=== PATIENT | male | born 1970 | race Caucasian/White ===

== ENCOUNTER 2017-02-08 08:00 | Outpatient (CLI) | payer MEDICAID ==
[2017-02-08 13:21] LABS: BASOPHILS % (AUTO) 0.4 %; EOSINOPHILS # (AUTO) 0.2 10^3/uL (0.0-0.7); EOSINOPHILS % (AUTO) 2.8 %; HCT - HEMATOCRIT 43.2 % (42.0-52.0); HGB - HEMOGLOBIN 15.1 g/dL (14.0-18.0); LYMPHOCYTES # (AUTO) 3.3 10^3/uL (1.5-3.5); LYMPHOCYTES % (AUTO) 58.3 %; MEAN CORPUSCULAR HEMOGLOBIN 33.6 pg (27.0-31.0); MEAN CORPUSCULAR VOLUME 95.9 fL (80.0-94.0); MEAN PLATELET VOLUME 9.2 fL (7.4-11.4); MONOCYTES # (AUTO) 0.5 10^3/uL (0.0-1.0); MONOCYTES % (AUTO) 9.2 %; NEUTROPHILS # (AUTO) 1.6 10^3/uL (1.5-6.6); NEUTROPHILS % (AUTO) 29.3 %; NUCLEATED RED BLOOD CELLS AUTO 0.1 /100WBC; RED BLOOD COUNT 4.51 10^6/uL (4.70-6.10); RED CELL DISTRIBUTION WIDTH 13.2 % (12.0-15.0); UNCORRECTED WHITE BLOOD COUNT 5.6 x10^3/uL; WHITE BLOOD COUNT 5.6 x10^3/uL (4.8-10.8)
[2017-02-08 13:31] LABS: ALBUMIN/GLOBULIN RATIO 1.5 (1.0-2.2); BILIRUBIN,TOTAL 0.8 mg/dL (0.2-1.0); BUN - BLOOD UREA NITROGEN 14 mg/dL (6-20); CALCIUM 8.9 mg/dL (8.5-10.3); CARBON DIOXIDE - CO2 25 mmol/L (21-32); CHLORIDE 104 mmol/L (101-111); CHOL/HDL RATIO 5.7 (<5.0); CHOLESTEROL 258 mg/dL; GFR - MDRD 81 (>89); GLUCOSE 108 mg/dL (70-100); HDL CHOLESTEROL 45 mg/dL; POTASSIUM 3.7 mmol/L (3.5-5.0); SODIUM 140 mmol/L (135-145); TOTAL PROTEIN 6.9 g/dL (6.7-8.2); TRIGLYCERIDES 637 mg/dL
[2017-02-08 13:50] LABS: LDL CHOLESTEROL,DIRECT 123 mg/dL
== END 2017-02-08 08:01 | disposition home or self-care (01) ==
LOC: LAB.N 08:00
PROVIDERS: ATTEND Physician Assistant
DX: I10 Essential (primary) hypertension (principal); F31.81 Bipolar II disorder
CPT/HCPCS: 36415; 80053; 80061; 84443; 85025

== ENCOUNTER 2017-06-28 12:57 | Emergency (ER) | payer MEDICAID ==
[2017-06-28 13:25] LABS: BILIRUBIN,URINE NEGATIVE (NEGATIVE); PH,URINE 7.5 PH (5.0-7.5)
[2017-06-28 13:26] LABS: UA CHARGE (STRIP ONLY) YES; UR CULTURE IF IND NOT INDICATED
[2017-06-28 13:44] LABS: BASOPHILS # (AUTO) 0.1 10^3/uL (0.0-0.1); BASOPHILS % (AUTO) 1.2 %; EOSINOPHILS # (AUTO) 0.1 10^3/uL (0.0-0.7); EOSINOPHILS % (AUTO) 2.2 %; HGB - HEMOGLOBIN 14.8 g/dL (14.0-18.0); LYMPHOCYTES # (AUTO) 1.5 10^3/uL (1.5-3.5); LYMPHOCYTES % (AUTO) 34.5 %; MEAN CORPUSCULAR HEMOGLOBIN 33.3 pg (27.0-31.0); MEAN CORPUSCULAR HGB CONC 35.1 g/dL (32.0-36.0); MEAN CORPUSCULAR VOLUME 94.8 fL (80.0-94.0); MEAN PLATELET VOLUME 8.1 fL (7.4-11.4); MONOCYTES # (AUTO) 0.4 10^3/uL (0.0-1.0); NEUTROPHILS # (AUTO) 2.3 10^3/uL (1.5-6.6); NEUTROPHILS % (AUTO) 53.1 %; NUCLEATED RED BLOOD CELLS AUTO 0.1 /100WBC; RED BLOOD COUNT 4.43 10^6/uL (4.70-6.10); RED CELL DISTRIBUTION WIDTH 12.7 % (12.0-15.0); UNCORRECTED WHITE BLOOD COUNT 4.4 x10^3/uL; WHITE BLOOD COUNT 4.4 x10^3/uL (4.8-10.8)
[2017-06-28 13:58] LABS: ACETAMINOPHEN < 10 ug/mL (10-30); ALBUMIN/GLOBULIN RATIO 1.4 (1.0-2.2); BILIRUBIN,TOTAL 0.6 mg/dL (0.2-1.0); BUN - BLOOD UREA NITROGEN 13 mg/dL (6-20); CALCIUM 9.3 mg/dL (8.5-10.3); CARBON DIOXIDE - CO2 24 mmol/L (21-32); CHLORIDE 104 mmol/L (101-111); GFR - MDRD 80 (>89); GLUCOSE 109 mg/dL (70-100); LIPASE 20 U/L (22-51); SALICYLATE < 6.0 mg/dL; SODIUM 138 mmol/L (135-145); TOTAL PROTEIN 7.1 g/dL (6.7-8.2)
--- NOTE | 2017-06-28 14:14 | ED Physician Documentation ---
PD HPI MHE - Stated complaint Stated Complaint: SI/DEPRESSION - Chief complaint Chief Complaint: MHE - History obtained from History obtained from: Patient - History of Present Illness Primary symptom: Suicidal ideation Timing - onset: How many days ago (several) Pain level max: 0 Pain level now: 0 Contributing factors: No: Family, Sig other, Work, School, Money, Legal, Substance abuse - ETOH, Substance abuse - drugs, Off meds, Out of meds Similar symptoms before: Diagnosis (bipolar, depression, anxiety) Recently seen: Other (Sent to the emergency department by his psychiatrist and counselor at [facility] for evaluation. Has been stating that he has been feeling suicidal, his plan is to take dental floss, twisted into a rope and hang himself. States last hospitalized approximately 5 years ago in [facility]. States he was in prison for 4 years recently. Denies any drug use other than marijuana.) Review of Systems Ten Systems: 10 systems reviewed and negative Constitutional: denies: Fever, Chills Ears: denies: Ear pain Nose: denies: Rhinorrhea / runny nose, Congestion Throat: denies: Sore throat Cardiac: denies: Chest pain / pressure Respiratory: denies: Cough GI: denies: Abdominal Pain, Nausea, Vomiting, Diarrhea Skin: denies: Rash Musculoskeletal: denies: Neck pain, Back pain Neurologic: denies: Focal weakness, Numbness, Headache Psychiatric: reports: Anxiety PD PAST MEDICAL HISTORY - Past Medical History Past Medical History: Yes Cardiovascular: Hypertension Respiratory: None, Other Neuro: None Endocrine/Autoimmune: None GI: None : None HEENT: Chronic sinusitis Psych: Depression, Anxiety, Bipolar disorder, Panic attacks, ADD/ADHD, Post traumatic stress disorder, Claustrophobia Musculoskeletal: Gout Derm: None - Past Surgical History Past Surgical History: Yes Ortho: Rotator cuff repair, Other HEENT: Tonsil/Adenoidectomy - Present Medications Home Medications: Ambulatory Orders Medication Instructions Recorded Confirmed FLUoxetine [PROzac] 40 mg PO DAILY 12/27/13 06/28/17 Mirtazapine [Remeron] 15 mg PO HS 12/27/13 06/28/17 Dextroamphetamine/Amphetamine 20 mg PO BID 03/30/14 06/28/17 [Adderall Xr 20 mg Capsule] Lorazepam 1 mg PO DAILY PRN 05/08/14 06/28/17 lamoTRIgine [LaMICtal] 100 mg PO BID 05/08/14 06/28/17 Olanzapine [Zyprexa] 100 mg PO BID 04/28/15 06/28/17 Omeprazole 20 mg PO DAILY 04/28/15 06/28/17 Divalproex Sodium [Depakote] 500 mg PO BID 01/21/16 06/28/17 busPIRone [Buspar] 15 mg PO BID 01/21/16 06/28/17 - Allergies Allergies/Adverse Reactions: Allergies Allergy/AdvReac Type Severity Reaction Status Date / Time risperidone [From Risperdal] Allergy Severe Edema Verified 06/28/17 13:04 rofecoxib [From Vioxx] Allergy Severe rapid Verified 06/28/17 13:04 heart rate celecoxib [From Celebrex] Allergy Intermediate elevated HR Verified 06/28/17 13: 04 NSAIDS (Non-Steroidal Allergy Intermediate Respiratory Verified 06/28/17 13:04 Anti-Inflamma pentosan polysulfate sodium Allergy Mild Unknown Verified 06/28/17 13:04 [From Elmiron] - Social History Does the pt smoke?: Yes Smoking Status: Current some day smoker Does the pt drink ETOH?: No Does the pt have substance abuse?: No - Immunizations Immunizations are current?: Yes - POLST Patient has POLST: No PD ED PE NORMAL - Vitals Vital signs reviewed: Yes - General General: Alert and oriented X 3, No acute distress, Well developed/nourished - HEENT HEENT: PERRL, Moist mucous membranes - Neck Neck: Supple, no meningeal sign - Cardiac Cardiac: RRR, Strong equal pulses - Respiratory Respiratory: No respiratory distress, Clear bilaterally - Abdomen Abdomen: Soft, Non tender, Non distended - Back Back: No spinal TTP - Derm Derm: Warm and dry - Extremities Extremities: No edema, No calf tenderness / cord - Neuro Neuro: Alert and oriented X 3, loop tender 2-12 intact, No motor deficit, No sensory deficit, Normal speech - Psych Psych: Normal mood, Normal affect Results - Vitals Vitals: Vital Signs - 24 hr 06/28/17 06/28/17 12:59 13:52 Temperature 35.9 C L 35.8 C L Heart Rate 84 69 Respiratory 18 16 Rate Blood Pressure 130/75 134/91 H O2 Saturation 97 99 Oxygen O2 Source Room air - Labs Labs: Laboratory Tests 06/28/17 06/28/17 06/28/17 13:36 13:36 Unknown WBC 4.4 L RBC 4.43 L Hgb 14.8 Hct 42.0 MCV 94.8 H MCH 33.3 H MCHC 35.1 RDW 12.7 Plt Count 191 MPV 8.1 Neut # 2.3 Lymph # 1.5 [place] # 0.4 Eos # 0.1 Baso # 0.1 Absolute Nucleated RBC 0.00 Nucleated RBC % 0.1 Sodium 138 Potassium 4.0 Chloride 104 Carbon Dioxide 24 Anion Gap 10.0 BUN 13 Creatinine 1.0 Estimated GFR (MDRD) 80 L Glucose 109 H Calcium 9.3 Total Bilirubin 0.6 AST 31 ALT 62 H Alkaline Phosphatase 65 Total Protein 7.1 Albumin 4.1 Globulin 3.0 Albumin/Globulin Ratio 1.4 Lipase 20 L Urine Color YELLOW Urine Clarity CLEAR Urine pH 7.5 Ur Specific [place] 1.015 Urine Protein NEGATIVE Urine Glucose (UA) NEGATIVE Urine Ketones NEGATIVE Urine Occult Blood NEGATIVE Urine Nitrite NEGATIVE Urine Bilirubin NEGATIVE Urine Urobilinogen 0.2 (NORMAL) Ur Leukocyte Esterase NEGATIVE Ur Microscopic Review NOT INDICATED Urine Culture Comments NOT INDICATED Salicylates < 6.0 Urine Opiates Screen POSITIVE H Ur Oxycodone Screen NEGATIVE Urine Methadone Screen NEGATIVE Ur Propoxyphene Screen NEGATIVE Acetaminophen < 10 L Ur Barbiturates Screen NEGATIVE Ur Tricyclics Screen NEGATIVE Ur Phencyclidine Scrn NEGATIVE Ur Amphetamine Screen POSITIVE H U Methamphetamines Scrn NEGATIVE U Benzodiazepines Scrn POSITIVE H Urine Cocaine Screen NEGATIVE U Cannabinoids Screen POSITIVE H Ethyl Alcohol < 5.0 PD MEDICAL DECISION MAKING - ED course Complexity details: reviewed results, re-evaluated patient, considered differential, d/w patient ED course: Patient with suicidal ideation. Requesting voluntary placement. Social work consulted after medical clearance. Patient is accepted to [facility], but do not have a bed until tomorrow. He will remain in the emergency department overnight for his safety. Patient is comfortable with this plan. This document was made in part using voice recognition software. While efforts are made to proofread this document, sound alike and grammatical errors may occur. Departure - Departure Clinical Impression: Suicidal ideation Depression Qualifiers: Depression Type: unspecified Qualified Code(s): F32.9 - Major depressive disorder, single episode, unspecified Bipolar disorder Qualifiers: Active/Remission status: currently active Current bipolar episode type: depressed Current episode severity: severe Psychotic features: without psychotic features Qualified Code(s): F31.4 - Bipolar disorder, current episode depressed, severe, without psychotic features Condition: Stable
[2017-06-28] MEDS ORDERED: lamoTRIgine 100 MG TABLET PO STA (18:55)
[2017-06-28] MEDS ORDERED: OLANZapine ODT 5 MG TABLET TL ONE ×2 (18:55→20:56)
[2017-06-28] MEDS ORDERED: busPIRone 5 MG TABLET PO STA (18:55)
[2017-06-28] MEDS ORDERED: DIVALPROEX DR 125 MG TABLET PO STA (18:55)
[2017-06-28] MEDS ORDERED: MIRTAZAPINE 15 MG TABLET PO STA (18:55)
[2017-06-28] MEDS ORDERED: DIVALPROEX DR 250 MG TABLET PO ONE (20:52)
[2017-06-29] MEDS ORDERED: lamoTRIgine 100 MG TABLET PO STA (13:11)
[2017-06-29] MEDS ORDERED: OLANZapine ODT 5 MG TABLET TL ONE ×2 (13:11→13:39)
[2017-06-29] MEDS ORDERED: busPIRone 5 MG TABLET PO STA (13:11)
[2017-06-29] MEDS ORDERED: DIVALPROEX DR 125 MG TABLET PO STA (13:11)
[2017-06-29] MEDS ORDERED: PANTOPRAZOLE 40 MG TABLET PO STA (13:13)
[2017-06-29] MEDS ORDERED: FLUoxetine 10 MG CAPSULE PO STA (13:13)
[2017-06-29] MEDS ORDERED: PANTOPRAZOLE 40 MG TABLET ONE (13:39)
[2017-06-29 13:50] VITALS: BP 135/68
== END 2017-06-29 14:10 ==
LOC: ED 12:57
DX: R45.851 Suicidal ideations (principal); F31.4 Bipolar disorder, current episode depressed, severe, without psychotic features; I10 Essential (primary) hypertension; F17.200 Nicotine dependence, unspecified, uncomplicated
CPT/HCPCS: 36415; 80053; 80306; 80307; 80320; 80329; 81003; 83690; 85025; 99285; A9270; 81001; 87086; 99284

== ENCOUNTER 2017-12-17 14:29 | Emergency (ER) | payer MEDICAID ==
[2017-12-17 16:00] LABS: MUDS CUTOFF CONCENTRATIONS CUTOFF CONC BELOW:
[2017-12-17 16:02] LABS: BILIRUBIN,URINE NEGATIVE (NEGATIVE); GLUCOSE, URINE (UA) NEGATIVE (NEGATIVE); KETONES,URINE (UA) NEGATIVE (NEGATIVE); LEUKOCYTE ESTERASE, URINE NEGATIVE (NEGATIVE); NITRITE,URINE NEGATIVE (NEGATIVE); OCCULT BLOOD,URINE TRACE-INTA (NEGATIVE); PROTEIN,URINE NEGATIVE (NEGATIVE); UROBILINOGEN,URINE 0.2 (NORMAL) E.U./dL (NORMAL)
[2017-12-17 16:03] LABS: CLARITY,URINE CLEAR (CLEAR)
[2017-12-17 16:13] LABS: AMPHETAMINE SCREEN,URINE POSITIVE (NEGATIVE); BENZODIAZEPINES SCREEN, URINE NEGATIVE (NEGATIVE); COCAINE SCREEN URINE NEGATIVE (NEGATIVE); METHADONE SCREEN, URINE NEGATIVE (NEGATIVE); METHAMPHETAMINES SCREEN, URINE POSITIVE (NEGATIVE); OPIATE SCREEN, URINE NEGATIVE (NEGATIVE); OXYCODONE SCREEN, URINE NEGATIVE (NEGATIVE); PROPOXYPHENE SCREEN, URINE NEGATIVE (NEGATIVE); TRICYCLIC ANTIDEPRESSANT,URINE NEGATIVE (NEGATIVE)
[2017-12-17 16:25] LABS: BASOPHILS # (AUTO) 0.1 10^3/uL (0.0-0.1); BASOPHILS % (AUTO) 0.8 %; EOSINOPHILS # (AUTO) 0.1 10^3/uL (0.0-0.7); EOSINOPHILS % (AUTO) 0.8 %; HGB - HEMOGLOBIN 17.6 g/dL (14.0-18.0); LYMPHOCYTES # (AUTO) 3.1 10^3/uL (1.5-3.5); LYMPHOCYTES % (AUTO) 32.5 %; MEAN CORPUSCULAR HEMOGLOBIN 32.8 pg (27.0-31.0); MEAN CORPUSCULAR HGB CONC 34.3 g/dL (32.0-36.0); MEAN CORPUSCULAR VOLUME 95.5 fL (80.0-94.0); MONOCYTES # (AUTO) 0.8 10^3/uL (0.0-1.0); MONOCYTES % (AUTO) 8.9 %; NEUTROPHILS # (AUTO) 5.4 10^3/uL (1.5-6.6); PLT - PLATELET COUNT 260 10^3/uL (130-450); RED BLOOD COUNT 5.37 10^6/uL (4.70-6.10); RED CELL DISTRIBUTION WIDTH 12.9 % (12.0-15.0); WHITE BLOOD COUNT 9.5 x10^3/uL (4.8-10.8)
--- NOTE | 2017-12-17 16:28 | ED Physician Documentation ---
PD HPI MHE - Stated complaint Stated Complaint: MHE - Chief complaint Chief Complaint: MHE - History obtained from History obtained from: Patient - History of Present Illness Primary symptom: Psychosis (hearing voices and music in his head which is bothering him and he is feeling anxious. He feels he needs meds adjusted and someplace safe. He has been Hospitaliszed to [facility] in recent past and says he felt better after meds changed there. He denies alcohol nor drug use, and has not had any recent change in meds nor skipped meds.) Timing - onset: How many days ago (few) Contributing factors: No: Substance abuse - ETOH, Substance abuse - drugs, Off meds, Out of meds Similar symptoms before: Diagnosis (see PMH - affective psychosis) Recently seen: Not recently seen Review of Systems Constitutional: denies: Fever, Chills Nose: denies: Rhinorrhea / runny nose, Congestion Throat: denies: Sore throat Cardiac: denies: Chest pain / pressure, Palpitations Respiratory: denies: Dyspnea, Cough GI: denies: Abdominal Pain, Nausea, Vomiting, Diarrhea : denies: Dysuria, Frequency Skin: denies: Rash, Lesions Neurologic: reports: Headache. denies: Generalized weakness, Focal weakness, Numbness, Confused, Altered mental status, Head injury Psychiatric: reports: Hallucinations (auditory), Anxiety Endocrine: denies: Weight loss Immunocompromised: denies: Immunocompromised PD PAST MEDICAL HISTORY - Past Medical History Cardiovascular: Hypertension Respiratory: None, Other Neuro: None Endocrine/Autoimmune: None GI: None : None HEENT: Chronic sinusitis Psych: Depression, Anxiety, Bipolar disorder, Panic attacks, ADD/ADHD, Post traumatic stress disorder, Claustrophobia Musculoskeletal: Gout Derm: None - Past Surgical History Past Surgical History: Yes Ortho: Rotator cuff repair, Other HEENT: Tonsil/Adenoidectomy - Present Medications Home Medications: Ambulatory Orders Medication Instructions Recorded Confirmed FLUoxetine [PROzac] 40 mg PO DAILY 12/27/13 06/28/17 Mirtazapine [Remeron] 15 mg PO HS 12/27/13 06/28/17 Dextroamphetamine/Amphetamine 20 mg PO BID 03/30/14 06/28/17 [Adderall Xr 20 mg Capsule] LORazepam [Lorazepam] 1 mg PO DAILY PRN 05/08/14 06/28/17 lamoTRIgine [LaMICtal] 100 mg PO BID 05/08/14 06/28/17 Olanzapine [Zyprexa] 100 mg PO BID 04/28/15 06/28/17 Omeprazole 20 mg PO DAILY 04/28/15 06/28/17 Divalproex Sodium [Depakote] 500 mg PO BID 01/21/16 06/28/17 busPIRone [Buspar] 15 mg PO BID 01/21/16 06/28/17 - Allergies Allergies/Adverse Reactions: Allergies Allergy/AdvReac Type Severity Reaction Status Date / Time risperidone [From Risperdal] Allergy Severe Edema Verified 06/28/17 13:04 rofecoxib [From Vioxx] Allergy Severe rapid Verified 06/28/17 13:04 heart rate celecoxib [From Celebrex] Allergy Intermediate elevated HR Verified 06/28/17 13: 04 NSAIDS (Non-Steroidal Allergy Intermediate Respiratory Verified 06/28/17 13:04 Anti-Inflamma pentosan polysulfate sodium Allergy Mild Unknown Verified 06/28/17 13:04 [From Elmiron] - Social History Does the pt smoke?: Yes Smoking Status: Current every day smoker Does the pt drink ETOH?: No Does the pt have substance abuse?: No - Immunizations Immunizations are current?: Yes - POLST Patient has POLST: No PD ED PE NORMAL - Vitals Vital signs reviewed: Yes - General General: Alert and oriented X 3, Well developed/nourished, Other (seems anxious) - HEENT HEENT: Atraumatic, PERRL, EOMI, Moist mucous membranes, Pharynx benign - Neck Neck: Supple, no meningeal sign, No adenopathy - Cardiac Cardiac: RRR, No murmur - Respiratory Respiratory: Clear bilaterally - Abdomen Abdomen: Soft, Non tender - Derm Derm: Normal color, Warm and dry, No rash - Extremities Extremities: No deformity, No tenderness to palpate, Normal ROM s pain, No edema - Psych Psych: No: Normal affect (anxious but conversant and pleasant. ) Results - Vitals Vitals: Vital Signs - 24 hr 12/17/17 12/17/17 12/17/17 15:28 18:09 20:55 Temperature 36.8 C 37.2 C 36.8 C Heart Rate 85 86 87 Respiratory 16 18 18 Rate Blood Pressure 163/101 H 145/97 H 145/93 H O2 Saturation 99 100 97 12/17/17 20:57 Temperature Heart Rate Respiratory 17 Rate Blood Pressure O2 Saturation Oxygen O2 Source Room air - Labs Labs: Laboratory Tests 12/17/17 12/17/17 12/17/17 15:32 16:18 16:18 WBC 9.5 RBC 5.37 Hgb 17.6 Hct 51.3 MCV 95.5 H MCH 32.8 H MCHC 34.3 RDW 12.9 Plt Count 260 MPV 8.0 Neut # 5.4 Lymph # 3.1 [place] # 0.8 Eos # 0.1 Baso # 0.1 Absolute Nucleated RBC 0.01 Nucleated RBC % 0.1 Sodium 136 Potassium 4.0 Chloride 101 Carbon Dioxide 24 Anion Gap 11.0 BUN 16 Creatinine 1.1 Estimated GFR (MDRD) 72 L Glucose 104 H Calcium 9.5 Total Bilirubin 1.3 H AST 47 H ALT 67 H Alkaline Phosphatase 85 Total Protein 8.7 H Albumin 4.9 Globulin 3.8 Albumin/Globulin Ratio 1.3 Lipase 11 L TSH Urine Color YELLOW Urine Clarity CLEAR Urine pH 6.0 Ur Specific [place] 1.025 Urine Protein NEGATIVE Urine Glucose (UA) NEGATIVE Urine Ketones NEGATIVE Urine Occult Blood TRACE-INTA Urine Nitrite NEGATIVE Urine Bilirubin NEGATIVE Urine Urobilinogen 0.2 (NORMAL) Ur Leukocyte Esterase NEGATIVE Ur Microscopic Review NOT INDICATED Urine Culture Comments NOT INDICATED Last Dose Date Last Dose Time Salicylates < 6.0 Urine Opiates Screen NEGATIVE Ur Oxycodone Screen NEGATIVE Urine Methadone Screen NEGATIVE Ur Propoxyphene Screen NEGATIVE Acetaminophen < 10 L Ur Barbiturates Screen NEGATIVE Valproic Acid Ur Tricyclics Screen NEGATIVE Ur Phencyclidine Scrn NEGATIVE Ur Amphetamine Screen POSITIVE H U Methamphetamines Scrn POSITIVE H U Benzodiazepines Scrn NEGATIVE Urine Cocaine Screen NEGATIVE U Cannabinoids Screen POSITIVE H Ethyl Alcohol < 5.0 12/17/17 12/17/17 16:18 16:18 WBC RBC Hgb Hct MCV MCH MCHC RDW Plt Count MPV Neut # Lymph # [place] # Eos # Baso # Absolute Nucleated RBC Nucleated RBC % Sodium Potassium Chloride Carbon Dioxide Anion Gap BUN Creatinine Estimated GFR (MDRD) Glucose Calcium Total Bilirubin AST ALT Alkaline Phosphatase Total Protein Albumin Globulin Albumin/Globulin Ratio Lipase TSH 3.28 Urine Color Urine Clarity Urine pH Ur Specific [place] Urine Protein Urine Glucose (UA) Urine Ketones Urine Occult Blood Urine Nitrite Urine Bilirubin Urine Urobilinogen Ur Leukocyte Esterase Ur Microscopic Review Urine Culture Comments Last Dose Date UNKNOWN Last Dose Time UNKNOWN Salicylates Urine Opiates Screen Ur Oxycodone Screen Urine Methadone Screen Ur Propoxyphene Screen Acetaminophen Ur Barbiturates Screen Valproic Acid 48.4 Ur Tricyclics Screen Ur Phencyclidine Scrn Ur Amphetamine Screen U Methamphetamines Scrn U Benzodiazepines Scrn Urine Cocaine Screen U Cannabinoids Screen Ethyl Alcohol PD MEDICAL DECISION MAKING - ED course Complexity details: considered differential (he feels he needs meds evaluated. Would not feel comfortable enough at [facility], which I asked him about. Our Commissions Specialist is gone for day and unable to assess him. He wants treatment and is thus voluntary. Talked with him about going home and returning if still feeling badly in AM. He would prefer to stay here the night and have SW evaluate him for admission to psych facility. ), d/w patient Departure - Departure Clinical Impression: Affective psychosis, Anxiety Condition: Stable Record reviewed to determine appropriate education?: Yes
[2017-12-17 16:38] LABS: ALBUMIN 4.9 g/dL (3.2-5.5); ALBUMIN/GLOBULIN RATIO 1.3 (1.0-2.2); ALKALINE PHOSPHATASE 85 IU/L (42-121); ALT ALANINE AMINOTRANSFERASE 67 IU/L (10-60); AST ASPARTATE AMINOTRANSFERASE 47 IU/L (10-42); BILIRUBIN,TOTAL 1.3 mg/dL (0.2-1.0); BUN - BLOOD UREA NITROGEN 16 mg/dL (6-20); CALCIUM 9.5 mg/dL (8.5-10.3); CARBON DIOXIDE - CO2 24 mmol/L (21-32); CHLORIDE 101 mmol/L (101-111); CREATININE 1.1 mg/dL (0.6-1.2); GFR - MDRD 72 (>89); GLUCOSE 104 mg/dL (70-100); LIPASE 11 U/L (22-51); SALICYLATE < 6.0 mg/dL; SODIUM 136 mmol/L (135-145); TOTAL PROTEIN 8.7 g/dL (6.7-8.2)
[2017-12-17] MEDS ORDERED: LORazepam 0.5 MG TABLET PO STA (16:45)
[2017-12-17 16:47] LABS: ACETAMINOPHEN < 10 ug/mL (10-30)
[2017-12-17 17:01] LABS: VALPROIC ACID (DEPAKOTE) 48.4 ug/mL
[2017-12-17] MEDS ORDERED: OLANZapine ODT 5 MG TABLET TL STA (21:48)
[2017-12-17] MEDS ORDERED: MIRTAZAPINE 15 MG TABLET PO STA (21:48)
[2017-12-17] MEDS ORDERED: lamoTRIgine 100 MG TABLET PO STA (21:49)
[2017-12-18] MEDS ORDERED: FLUoxetine 10 MG CAPSULE PO STA (09:34)
[2017-12-18] MEDS ORDERED: busPIRone 5 MG TABLET PO STA ×2 (09:35→09:45)
[2017-12-18] MEDS ORDERED: lamoTRIgine 100 MG TABLET PO STA (09:35)
[2017-12-18] MEDS ORDERED: OLANZapine ODT 5 MG TABLET TL ONE (09:36)
[2017-12-18] MEDS ORDERED: LORazepam 0.5 MG TABLET PO STA ×2 (10:55→16:52)
[2017-12-18 13:57] VITALS: BP 132/93
--- NOTE | 2017-12-18 15:47 | ED Physician Documentation ---
ED Addendum - Addendum Addendum: 12/18/17 15:44 Patient still here on my start of shift today. Had stayed overnight for SW for admission to Psych. Nursing states SW had been notified in AM and there were several patients for SW to see. Patient has not been seen by social work as of this point. I had talked with her about the patient soon after start of shift, about 1 pm and she said she would be getting to him and another MHE patient just after lunch. Will check with her again at this time. Patient says he is feeling like he will just go home soon, and is not feeling suicidal, less anxious.
== END 2017-12-18 16:52 | disposition left against medical advice (07) ==
LOC: ED 14:29
DX: F39 Unspecified mood [affective] disorder (principal); F41.9 Anxiety disorder, unspecified; F17.200 Nicotine dependence, unspecified, uncomplicated; F43.10 Post-traumatic stress disorder, unspecified
CPT/HCPCS: 36415; 80053; 80164; 80306; 80307; 80320; 80329; 81003; 83690; 84443; 85025; 99284; A9270; 81001; 87086

== ENCOUNTER 2018-07-04 15:31 | Outpatient (CLI) | payer MEDICAID ==
[2018-07-04 16:20] LABS: VALPROIC ACID (DEPAKOTE) 11.1 ug/mL
== END 2018-07-04 15:32 | disposition home or self-care (01) ==
LOC: LAB 15:31
PROVIDERS: ATTEND Nurse Practitioner Psychiatric/Mental Health
DX: F31.81 Bipolar II disorder (principal)
CPT/HCPCS: 36415; 80164

== ENCOUNTER 2018-07-12 08:30 | Outpatient (CLI) | payer MEDICAID ==
[2018-07-12 18:53] LABS: BASOPHILS % (AUTO) 0.6 %; EOSINOPHILS # (AUTO) 0.1 10^3/uL (0.0-0.7); EOSINOPHILS % (AUTO) 0.8 %; HGB - HEMOGLOBIN 16.2 g/dL (14.0-18.0); LYMPHOCYTES # (AUTO) 3.3 10^3/uL (1.5-3.5); LYMPHOCYTES % (AUTO) 38.5 %; MEAN CORPUSCULAR HEMOGLOBIN 33.2 pg (27.0-31.0); MEAN CORPUSCULAR HGB CONC 33.8 g/dL (32.0-36.0); MEAN CORPUSCULAR VOLUME 98.2 fL (80.0-94.0); MEAN PLATELET VOLUME 9.5 fL (7.4-11.4); MONOCYTES # (AUTO) 0.6 10^3/uL (0.0-1.0); MONOCYTES % (AUTO) 6.9 %; NEUTROPHILS # (AUTO) 4.6 10^3/uL (1.5-6.6); NEUTROPHILS % (AUTO) 53.2 %; PLT - PLATELET COUNT 249 10^3/uL (130-450); RED BLOOD COUNT 4.88 10^6/uL (4.70-6.10); RED CELL DISTRIBUTION WIDTH 13.5 % (12.0-15.0); WHITE BLOOD COUNT 8.6 x10^3/uL (4.8-10.8)
== END 2018-07-12 08:31 | disposition home or self-care (01) ==
LOC: LAB.N 08:30
PROVIDERS: ATTEND Nurse Practitioner Psychiatric/Mental Health
DX: F31.81 Bipolar II disorder (principal)
CPT/HCPCS: 36415; 85025

== ENCOUNTER 2018-09-05 08:00 | Outpatient (CLI) | payer MEDICAID ==
[2018-09-05 09:50] LABS: MUDS CUTOFF CONCENTRATIONS CUTOFF CONC BELOW:
[2018-09-05 12:32] LABS: BASOPHILS # (AUTO) 0.1 10^3/uL (0.0-0.1); EOSINOPHILS # (AUTO) 0.1 10^3/uL (0.0-0.7); EOSINOPHILS % (AUTO) 1.7 %; HGB - HEMOGLOBIN 17.3 g/dL (14.0-18.0); LYMPHOCYTES # (AUTO) 3.8 10^3/uL (1.5-3.5); LYMPHOCYTES % (AUTO) 47.8 %; MEAN CORPUSCULAR HEMOGLOBIN 33.4 pg (27.0-31.0); MEAN CORPUSCULAR VOLUME 95.5 fL (80.0-94.0); MEAN PLATELET VOLUME 9.8 fL (7.4-11.4); MONOCYTES # (AUTO) 0.8 10^3/uL (0.0-1.0); MONOCYTES % (AUTO) 10.4 %; NEUTROPHILS # (AUTO) 3.1 10^3/uL (1.5-6.6); NEUTROPHILS % (AUTO) 39.1 %; PLT - PLATELET COUNT 255 10^3/uL (130-450); RED BLOOD COUNT 5.17 10^6/uL (4.70-6.10); RED CELL DISTRIBUTION WIDTH 12.9 % (12.0-15.0)
[2018-09-05 12:35] LABS: AMPHETAMINE SCREEN,URINE POSITIVE (NEGATIVE); BENZODIAZEPINES SCREEN, URINE NEGATIVE (NEGATIVE); COCAINE SCREEN URINE NEGATIVE (NEGATIVE); METHADONE SCREEN, URINE NEGATIVE (NEGATIVE); METHAMPHETAMINES SCREEN, URINE NEGATIVE (NEGATIVE); OPIATE SCREEN, URINE NEGATIVE (NEGATIVE); OXYCODONE SCREEN, URINE NEGATIVE (NEGATIVE); PROPOXYPHENE SCREEN, URINE NEGATIVE (NEGATIVE); TRICYCLIC ANTIDEPRESSANT,URINE NEGATIVE (NEGATIVE)
[2018-09-06 02:37] LABS: VALPROIC ACID (DEPAKOTE) 38.5 ug/mL
== END 2018-09-05 23:59 | disposition home or self-care (01) ==
LOC: LAB.N 08:00
PROVIDERS: ATTEND Nurse Practitioner Psychiatric/Mental Health
DX: F31.81 Bipolar II disorder (principal)
CPT/HCPCS: 36415; 80164; 80306; 85025

== ENCOUNTER 2018-10-09 15:30 | Outpatient (CLI) | payer MEDICAID | END 2018-10-09 23:59 | disposition home or self-care (01) | LOC: RT.N 15:30 | PROVIDERS: ATTEND Physician Assistant Medical | DX: Z79.899 Other long term (current) drug therapy (principal) | CPT/HCPCS: 93005 ==

== ENCOUNTER 2019-05-07 14:31 | Emergency (ER) | payer MEDICAID ==
[2019-05-07 14:35] VITALS: BP 142/96
[2019-05-07] MEDS ORDERED: oxyCODONE 5 MG TABLET PO STA (14:41)
[2019-05-07] MEDS ORDERED: COLCHICINE 0.6 MG TABLET PO STA (14:41)
[2019-05-07] MEDS ORDERED: predniSONE 20 MG TABLET PO STA (14:41)
--- NOTE | 2019-05-07 14:45 | ED Physician Documentation ---
PD HPI LOWER EXT INJURY - Stated complaint Stated Complaint: L FOOT PX - Chief complaint Chief Complaint: Ext Problem - History obtained from History obtained from: Patient - History of Present Illness PD HPI LOW EXT INJURY LOCATION: Left (48-year-old gentleman with occasional attacks of gout since had 2 days of pain in the left great toe. He does take allopurinol but admits that he is only intermittently compliant with it. Tried Tylenol for the pain without relief. No fevers.) Review of Systems Constitutional: reports: Reviewed and negative Throat: reports: Reviewed and negative Cardiac: reports: Reviewed and negative PD PAST MEDICAL HISTORY - Past Medical History Cardiovascular: Hypertension Respiratory: None, Other Endocrine/Autoimmune: None GI: None : None HEENT: Chronic sinusitis Psych: Depression, Anxiety, Bipolar disorder, Panic attacks, ADD/ADHD, Post traumatic stress disorder, Claustrophobia Musculoskeletal: Gout Derm: None - Past Surgical History Past Surgical History: Yes Ortho: Rotator cuff repair, Other HEENT: Tonsil/Adenoidectomy - Present Medications Home Medications: Ambulatory Orders Medication Instructions Recorded Confirmed FLUoxetine [PROzac] 40 mg PO DAILY 12/27/13 06/28/17 Mirtazapine [Remeron] 7.5 mg PO HS 12/27/13 06/28/17 LORazepam [Lorazepam] 1 mg PO DAILY PRN 05/08/14 06/28/17 lamoTRIgine [LaMICtal] 200 mg PO BID 05/08/14 06/28/17 Olanzapine [Zyprexa] 30 mg PO 04/28/15 06/28/17 Omeprazole 20 mg PO DAILY 04/28/15 06/28/17 Divalproex Sodium [Depakote] 500 mg PO BID 01/21/16 06/28/17 busPIRone [Buspar] 30 mg PO BID 01/21/16 06/28/17 buPROPion HCl [Bupropion HCl ER] 200 mg PO DAILY 12/18/17 12/18/17 Oxycodone HCl/Acetaminophen 1 - 2 each PO Q6H PRN #14 tablet 05/07/19 [Percocet 5-325 mg Tablet] predniSONE [Deltasone] 60 mg PO DAILY 5 Days #15 tablet 05/07/19 - Allergies Allergies/Adverse Reactions: Allergies Allergy/AdvReac Type Severity Reaction Status Date / Time risperidone [From Risperdal] Allergy Severe Edema Verified 05/07/19 14:36 rofecoxib [From Vioxx] Allergy Severe rapid Verified 05/07/19 14:36 heart rate celecoxib [From Celebrex] Allergy Intermediate elevated HR Verified 05/07/19 14:36 NSAIDS (Non-Steroidal Allergy Intermediate Respiratory Verified 05/07/19 14:36 Anti-Inflamma pentosan polysulfate sodium Allergy Mild Unknown Verified 05/07/19 14:36 [From Elmiron] - Social History Does the pt smoke?: Yes Smoking Status: Current every day smoker Does the pt drink ETOH?: No Does the pt have substance abuse?: No - Immunizations Immunizations are current?: Yes - POLST Patient has POLST: No PD ED PE NORMAL - Vitals Vital signs reviewed: Yes - General General: Alert and oriented X 3, No acute distress - Extremities Extremities: Other (He has pretty classic podagra of the left foot with redness and swelling and tenderness of the left first MTP without spreading cellulitis.) - Neuro Neuro: Alert and oriented X 3, Normal speech Results - Vitals Vitals: Vital Signs - 24 hr 05/07/19 14:31 Temperature 36.3 C L Heart Rate 99 Respiratory 16 Rate Blood Pressure 142/96 H O2 Saturation 100 Oxygen O2 Source Room air Departure - Departure Disposition: 01 Home, Self Care Clinical Impression: Podagra Condition: Good Record reviewed to determine appropriate education?: Yes Instructions: ED Arthritis Gout, ED Diet Gout Prescriptions: Oxycodone HCl/Acetaminophen [Percocet 5-325 mg Tablet] 1 - 2 each PO Q6H PRN #14 tablet PRN Reason: pain predniSONE [Deltasone] 60 mg PO DAILY 5 Days #15 tablet Comments: Stop your allopurinol for about 4 weeks, then restart it and try to be more regular about it. Return for new worsening symptoms. Follow-up with your doctor next week. Do not drink or drive while taking narcotic pain medication. Note that many narcotic pain relievers also contain Tylenol/acetaminophen. Please ensure that your total dose of acetaminophen from all sources does not exceed 3 g (3000 mg) per day. You may get constipated while on this medication. Take a stool softener such as Colace twice a day while you are on it. Also add an [id number] laxative such as senna or MiraLAX on any day that you do not have a bowel movement. If you received a narcotic pain medication or sedative while in the emergency department, do not drive for the next 24 hours.
== END 2019-05-07 14:52 | disposition home or self-care (01) ==
LOC: ED 14:31
DX: M10.9 Gout, unspecified (principal); I10 Essential (primary) hypertension; F17.200 Nicotine dependence, unspecified, uncomplicated
CPT/HCPCS: 99282; 99283; A9270; J7512

== ENCOUNTER 2019-07-12 23:12 | Outpatient (CLI) | payer MEDICAID | END 2019-07-12 23:13 | disposition critical access hospital (66) | LOC: EMS 23:12 | PROVIDERS: ATTEND Surgery | DX: R07.9 Chest pain, unspecified (principal); F41.9 Anxiety disorder, unspecified ==

== ENCOUNTER 2019-07-12 23:28 | Emergency (ER) | payer MEDICAID ==
[2019-07-12 23:39] VITALS: BP 110/66
--- NOTE | 2019-07-12 23:58 | ED Physician Documentation ---
PD HPI CHEST PAIN - Stated complaint Stated Complaint: SOA/CP - Chief complaint Chief Complaint: Cardiac - History obtained from History obtained from: Patient, EMS - History of Present Illness Timing - onset: How many days ago (2) Timing - onset during: Rest Timing - duration: Days (2) Timing - details: Waxing and waning Pain level max: 6 Pain level now: 5 Quality: Sharp Location: Right chest Radiation: No: Jaw, Neck, Back, Abdominal, Left upper extremity, Right upper extremity Improved by: Rest Worsened by: Inspiration, Palpation Associated symptoms: No: Shortness of air, Diaphoresis, Nausea, Vomiting, Feeling faint / dizzy, General Weakness, Palpitations, Cough Similar symptoms before: Has not had sx before Recently seen: Not recently seen Review of Systems Constitutional: denies: Fever, Chills Ears: denies: Ear pain Nose: reports: Rhinorrhea / runny nose. denies: Congestion Cardiac: denies: Palpitations, Calf pain Respiratory: reports: Cough (dry) Skin: denies: Rash Neurologic: denies: Headache PD PAST MEDICAL HISTORY - Past Medical History Cardiovascular: Hypertension Respiratory: None, Other Endocrine/Autoimmune: None GI: None : None HEENT: Chronic sinusitis Psych: Depression, Anxiety, Bipolar disorder, Panic attacks, ADD/ADHD, Post traumatic stress disorder, Claustrophobia Musculoskeletal: Gout Derm: None - Past Surgical History Past Surgical History: Yes Ortho: Rotator cuff repair, Other HEENT: Tonsil/Adenoidectomy - Present Medications Home Medications: Ambulatory Orders Medication Instructions Recorded Confirmed FLUoxetine [PROzac] 40 mg PO DAILY 12/27/13 06/28/17 Mirtazapine [Remeron] 7.5 mg PO HS 12/27/13 06/28/17 LORazepam [Lorazepam] 1 mg PO DAILY PRN 05/08/14 06/28/17 lamoTRIgine [LaMICtal] 200 mg PO BID 05/08/14 06/28/17 Olanzapine [Zyprexa] 30 mg PO 04/28/15 06/28/17 Omeprazole 20 mg PO DAILY 04/28/15 06/28/17 Divalproex Sodium [Depakote] 500 mg PO BID 01/21/16 06/28/17 busPIRone [Buspar] 30 mg PO BID 01/21/16 06/28/17 buPROPion HCl [Bupropion HCl ER] 200 mg PO DAILY 12/18/17 12/18/17 Oxycodone HCl/Acetaminophen 1 - 2 each PO Q6H PRN #14 tablet 05/07/19 [Percocet 5-325 mg Tablet] predniSONE [Deltasone] 60 mg PO DAILY 5 Days #15 tablet 05/07/19 Doxycycline Hyclate 100 mg PO BID #20 capsule 07/13/19 - Allergies Allergies/Adverse Reactions: Allergies Allergy/AdvReac Type Severity Reaction Status Date / Time risperidone [From Risperdal] Allergy Severe Edema Verified 05/07/19 14:36 rofecoxib [From Vioxx] Allergy Severe rapid Verified 05/07/19 14:36 heart rate celecoxib [From Celebrex] Allergy Intermediate elevated HR Verified 05/07/19 14:36 NSAIDS (Non-Steroidal Allergy Intermediate Respiratory Verified 05/07/19 14:36 Anti-Inflamma pentosan polysulfate sodium Allergy Mild Unknown Verified 05/07/19 14:36 [From Elmiron] - Social History Does the pt smoke?: Yes Smoking Status: Current every day smoker Does the pt drink ETOH?: No Does the pt have substance abuse?: No - Immunizations Immunizations are current?: Yes - POLST Patient has POLST: No PD ED PE NORMAL - Vitals Vital signs reviewed: Yes - General General: Alert and oriented X 3, No acute distress, Well developed/nourished - HEENT HEENT: PERRL, Ears normal, Moist mucous membranes, Pharynx benign - Neck Neck: Supple, no meningeal sign - Cardiac Cardiac: RRR, Strong equal pulses - Respiratory Respiratory: No respiratory distress, Clear bilaterally - Abdomen Abdomen: Soft, Non tender, Non distended - Derm Derm: Warm and dry - Neuro Neuro: Alert and oriented X 3 - Psych Psych: Normal mood, Normal affect Results - Vitals Vitals: Vital Signs - 24 hr 07/12/19 07/12/19 23:36 23:57 Temperature 37.2 C Heart Rate 76 80 Respiratory 15 17 Rate Blood Pressure 110/66 110/66 O2 Saturation 96 97 Oxygen O2 Source Room air - EKG (time done) 2330 Rate: Rate (enter#) (82) Rhythm: NSR Platinum: Normal Intervals: Normal PA QRS: Normal Ischemia: Normal ST segments - Labs Labs: Laboratory Tests 07/12/19 07/12/19 07/12/19 23:45 23:45 23:45 WBC 12.8 H RBC 4.09 L Hgb 13.2 L Hct 38.5 L MCV 94.1 H MCH 32.3 H MCHC 34.3 RDW 12.2 Plt Count 210 MPV 10.8 Neut # (Auto) 8.8 H Lymph # (Auto) 2.6 [place] # (Auto) 1.0 Eos # (Auto) 0.2 Baso # (Auto) 0.1 Absolute Nucleated RBC 0.00 Nucleated RBC % 0.0 Sodium 143 Potassium 3.4 L Chloride 109 Carbon Dioxide 20 L Anion Gap 14.0 H BUN 12 Creatinine 1.0 Estimated GFR (MDRD) 80 L Glucose 112 H Calcium 8.5 Total Bilirubin 0.5 AST 19 ALT 22 Alkaline Phosphatase 73 Troponin I High Sens 3.3 Total Protein 6.5 L Albumin 3.4 Globulin 3.1 Albumin/Globulin Ratio 1.1 Lipase 22 - Rads (name of study) cxr Radiology: Prelim report reviewed, EMP read contemporaneously, See rad report (Interstitial infiltrate in the right lower lung. ) PD MEDICAL DECISION MAKING - ED course Complexity details: reviewed results, re-evaluated patient, considered differential, d/w patient ED course: Patient with what appears to be pneumonia on chest x-ray. No evidence of acute coronary syndrome. No evidence of PE. No acute findings on EKG or laboratory testing. Will place on antibiotics for home and have him follow-up with his doctor. Patient counseled regarding signs and symptoms for which I believe and urgent re-evaluation would be necessary. Patient with good understanding of and agreement to plan and is comfortable going home at this time This document was made in part using voice recognition software. While efforts are made to proofread this document, sound alike and grammatical errors may occur. Departure - Departure Disposition: 01 Home, Self Care Clinical Impression: Pneumonia Qualifiers: Pneumonia type: due to unspecified organism Laterality: right Lung location: lower lobe of lung Qualified Code(s): J18.1 - Lobar pneumonia, unspecified organism Condition: Good Instructions: ED Pneumonia Adult Follow-Up: Andrew Berrios PA-C [Primary Care Provider] - Within 1 week Prescriptions: Doxycycline Hyclate 100 mg PO BID #20 capsule Comments: You appear to have pneumonia on your chest x-ray tonight. Take all antibiotics until gone. Follow-up with your doctor in 1 week for recheck. Discharge Date/Time: 07/13/19 00:36
[2019-07-13 00:04] LABS: BASOPHILS # (AUTO) 0.1 10^3/uL (0.0-0.1); BASOPHILS % (AUTO) 0.4 %; EOSINOPHILS # (AUTO) 0.2 10^3/uL (0.0-0.7); EOSINOPHILS % (AUTO) 1.5 %; HGB - HEMOGLOBIN 13.2 g/dL (14.0-18.0); LYMPHOCYTES # (AUTO) 2.6 10^3/uL (1.5-3.5); LYMPHOCYTES % (AUTO) 20.3 %; MEAN CORPUSCULAR HEMOGLOBIN 32.3 pg (27.0-31.0); MEAN CORPUSCULAR HGB CONC 34.3 g/dL (32.0-36.0); MEAN CORPUSCULAR VOLUME 94.1 fL (80.0-94.0); MEAN PLATELET VOLUME 10.8 fL (7.4-11.4); NEUTROPHILS # (AUTO) 8.8 10^3/uL (1.5-6.6); NEUTROPHILS % (AUTO) 69.3 %; PLT - PLATELET COUNT 210 10^3/uL (130-450); RED BLOOD COUNT 4.09 10^6/uL (4.70-6.10); RED CELL DISTRIBUTION WIDTH 12.2 % (12.0-15.0); WHITE BLOOD COUNT 12.8 x10^3/uL (4.8-10.8)
[2019-07-13] MEDS ORDERED: MAG HYDROX/AL HYDROX/SIMETH 30 ML UDC PO STA (00:04)
[2019-07-13] MEDS ORDERED: LORazepam 1 MG TABLET PO STA (00:04)
--- NOTE | 2019-07-13 00:09 | XRAY Report ---
Reason: Chest Pain Procedure Date: 07/12/2019 Accession Number: [id number] / [id number] Procedure: XR - Chest 1 View X-Ray CPT Code: 88390 Final Report FULL RESULT: EXAM: CHEST RADIOGRAPHY EXAM DATE: 07/12/2019 11:56 PM. CLINICAL HISTORY: Chest Pain. COMPARISON: CHEST 2 VIEW PA/LAT 12/27/2013 11:16 AM. TECHNIQUE: 1 view. FINDINGS: Lungs/Pleura: The lung volumes are very low which accentuates the pulmonary interstitium. There does appear to be an interstitial infiltrate in the right lower lobe. There are no pleural effusions. Mediastinum: Within exam limitations, the cardiomediastinal contour is normal. Other: None. IMPRESSION: 1. Very low lung volumes. 2. Interstitial infiltrate in the right lower lung. RADIA
[2019-07-13 00:18] LABS: ALBUMIN 3.4 g/dL (3.2-5.5); ALBUMIN/GLOBULIN RATIO 1.1 (1.0-2.2); BILIRUBIN,TOTAL 0.5 mg/dL (0.2-1.0); CALCIUM 8.5 mg/dL (8.5-10.3); TOTAL PROTEIN 6.5 g/dL (6.7-8.2)
[2019-07-13] MEDS ORDERED: DOXYCYCLINE 100 MG TABLET PO STA (00:27)
== END 2019-07-13 00:36 | disposition home or self-care (01) ==
LOC: EDUNIT# → EDBD → ED 23:28
DX: J18.1 Lobar pneumonia, unspecified organism (principal); I10 Essential (primary) hypertension; F17.200 Nicotine dependence, unspecified, uncomplicated
CPT/HCPCS: 36415; 71045; 80053; 83690; 84484; 85025; 93005; 99284; A9270; J8499

== ENCOUNTER 2019-10-01 08:15 | Emergency (ER) | payer MEDICAID ==
--- NOTE | 2019-10-01 08:30 | ED Physician Documentation ---
PD HPI DYSPNEA - Stated complaint Stated Complaint: SOA - History obtained from History obtained from: Patient - History of Present Illness Timing - onset: Yesterday Timing - onset during: Exertion Timing - details: Abrupt onset Worsened by: Exertion Associated symptoms: Chest pain / discomfort, Palpitations. No: Fever, Cough, Bilateral edema, Unilateral edema Recently seen: Emergency Dept - Additional information Additional information: This is a 49-year-old man who presents with complaints that he is short of breath to the point of gasping for air with any exertion starting yesterday morning was here and had pneumonia "a couple of months ago". He took his antibiotics and never followed up with his primary care provider. He is also been having some pains that he describes as sharp in his left upper back chest area. He is felt dizzy and he passed out twice the last time being this morning he can of crumpled to the floor in the kitchen and hit his side of his head on the floor but says he was all right. That is what finally prompted him to decide he wanted to be seen. He is having palpitations with the shortness of breath on exertion. He denies any nausea or vomiting. He has had no recent upper respiratory symptoms of sore throat, stuffy nose or coughing. Denies history of asthma or DVT. He is never had anything happen like this before. He reports taking a lot of "mental health meds". He lives with his mother, does not drink alcohol and admits to occasional marijuana use. Review of Systems Constitutional: denies: Fever Eyes: denies: Loss of vision Ears: denies: Ear pain Nose: denies: Rhinorrhea / runny nose Throat: denies: Sore throat Cardiac: reports: Chest pain / pressure, Palpitations. denies: Pedal edema Respiratory: reports: Dyspnea. denies: Cough GI: denies: Nausea, Vomiting : denies: Dysuria Musculoskeletal: reports: Back pain Neurologic: reports: Generalized weakness, Syncope PD PAST MEDICAL HISTORY - Past Medical History Cardiovascular: Hypertension Respiratory: None, Other Endocrine/Autoimmune: None GI: None : None HEENT: Chronic sinusitis Psych: Depression, Anxiety, Bipolar disorder, Panic attacks, ADD/ADHD, Post traumatic stress disorder, Claustrophobia Musculoskeletal: Gout Derm: None - Past Surgical History Past Surgical History: Yes Ortho: Rotator cuff repair, Other HEENT: Tonsil/Adenoidectomy - Present Medications Home Medications: Ambulatory Orders Medication Instructions Recorded Confirmed FLUoxetine [PROzac] 40 mg PO DAILY 12/27/13 06/28/17 Mirtazapine [Remeron] 7.5 mg PO HS 12/27/13 06/28/17 LORazepam [Lorazepam] 1 mg PO DAILY PRN 05/08/14 06/28/17 lamoTRIgine [LaMICtal] 200 mg PO BID 05/08/14 06/28/17 Olanzapine [Zyprexa] 30 mg PO 04/28/15 06/28/17 Omeprazole 20 mg PO DAILY 04/28/15 06/28/17 Divalproex Sodium [Depakote] 500 mg PO BID 01/21/16 06/28/17 busPIRone [Buspar] 30 mg PO BID 01/21/16 06/28/17 buPROPion HCl [Bupropion HCl ER] 200 mg PO DAILY 12/18/17 12/18/17 Oxycodone HCl/Acetaminophen 1 - 2 each PO Q6H PRN #14 tablet 05/07/19 [Percocet 5-325 mg Tablet] predniSONE [Deltasone] 60 mg PO DAILY 5 Days #15 tablet 05/07/19 Doxycycline Hyclate 100 mg PO BID #20 capsule 07/13/19 - Allergies Allergies/Adverse Reactions: Allergies Allergy/AdvReac Type Severity Reaction Status Date / Time risperidone [From Risperdal] Allergy Severe Edema Verified 10/01/19 08:32 rofecoxib [From Vioxx] Allergy Severe rapid Verified 10/01/19 08:32 heart rate celecoxib [From Celebrex] Allergy Intermediate elevated HR Verified 10/01/19 08:32 NSAIDS (Non-Steroidal Allergy Intermediate Respiratory Verified 10/01/19 08:32 Anti-Inflamma pentosan polysulfate sodium Allergy Mild Unknown Verified 10/01/19 08:32 [From Elmiron] - Social History Does the pt smoke?: Yes Smoking Status: Current every day smoker Does the pt drink ETOH?: No Does the pt have substance abuse?: No - Immunizations Immunizations are current?: Yes - POLST Patient has POLST: No PD ED PE NORMAL - Vitals Vital signs reviewed: Yes - General General: Alert and oriented X 3, No acute distress, Well developed/nourished, Other (Patient does look a little pale.) - HEENT HEENT: Atraumatic, PERRL, EOMI, Moist mucous membranes, Pharynx benign, Other (There is no bruising or hematoma to his scalp where he hit his head on the floor.) - Neck Neck: Supple, no meningeal sign, No adenopathy - Cardiac Cardiac: RRR, No murmur, Strong equal pulses - Respiratory Respiratory: No respiratory distress (He is tachypneic), Clear bilaterally - Abdomen Abdomen: Normal bowel sounds, Soft, Non tender, Non distended, No organomegaly - Derm Derm: Warm and dry, No rash, Other (The patient is pale) - Extremities Extremities: No deformity, No edema - Neuro Neuro: Alert and oriented X 3, engine repairer 2-12 intact, No motor deficit, No sensory deficit, Normal speech - Psych Psych: Normal mood, Normal affect Results - Vitals Vitals: Vital Signs - 24 hr 10/01/19 10/01/19 10/01/19 08:26 08:32 09:22 Temperature 36.1 C L 36.2 C L Heart Rate 88 86 85 Respiratory 27 H 28 H 24 Rate Blood Pressure 113/69 98/77 103/90 H O2 Saturation 98 95 95 10/01/19 10/01/19 10/01/19 10:14 10:19 11:41 Temperature 37 C Heart Rate 81 81 84 Respiratory 23 22 20 Rate Blood Pressure 104/85 H 104/79 99/86 H O2 Saturation 95 96 97 10/01/19 10/01/19 10/01/19 13:00 13:39 14:49 Temperature Heart Rate 79 78 77 Respiratory 14 14 25 H Rate Blood Pressure 101/81 H 108/84 H 111/82 H O2 Saturation 94 92 91 L 10/01/19 15:47 Temperature Heart Rate 79 Respiratory 23 Rate Blood Pressure 105/83 H O2 Saturation 94 Oxygen O2 Source Room air - EKG (time done) 0845 Rate: Rate (enter#) (86) Rhythm: NSR Ischemia: T wave inversion (III, V1-V4), Non specific changes (Upsloping of ST segments leads II and aVL.) - Labs Labs: Laboratory Tests 10/01/19 10/01/19 10/01/19 09:14 09:14 09:14 WBC 14.3 H RBC 5.51 Hgb 17.4 Hct 51.0 MCV 92.6 MCH 31.6 H MCHC 34.1 RDW 12.8 Plt Count 320 MPV 9.9 Neut # (Auto) 9.9 H Lymph # (Auto) 3.1 [place] # (Auto) 1.1 H Eos # (Auto) 0.0 Baso # (Auto) 0.1 Absolute Nucleated RBC 0.00 Nucleated RBC % 0.0 D-Dimer Sodium 139 Potassium 4.3 Chloride 99 L Carbon Dioxide 21 Anion Gap 19.0 H BUN 11 Creatinine 1.3 H Estimated GFR (MDRD) 59 L Glucose 153 H Lactic Acid 3.6 H* Calcium 10.4 H Total Bilirubin 1.3 H AST 24 ALT 26 Alkaline Phosphatase 99 Troponin I High Sens Total Protein 8.6 H Albumin 4.5 Globulin 4.1 Albumin/Globulin Ratio 1.1 Lipase 21 L Urine Color Urine Clarity Urine pH Ur Specific [place] Urine Protein Urine Glucose (UA) Urine Ketones Urine Occult Blood Urine Nitrite Urine Bilirubin Urine Urobilinogen Ur Leukocyte Esterase Ur Microscopic Review Urine Culture Comments 10/01/19 10/01/19 10/01/19 09:14 09:14 09:15 WBC RBC Hgb Hct MCV MCH MCHC RDW Plt Count MPV Neut # (Auto) Lymph # (Auto) [place] # (Auto) Eos # (Auto) Baso # (Auto) Absolute Nucleated RBC Nucleated RBC % D-Dimer > 1050.0 H Sodium Potassium Chloride Carbon Dioxide Anion Gap BUN Creatinine Estimated GFR (MDRD) Glucose Lactic Acid Calcium Total Bilirubin AST ALT Alkaline Phosphatase Troponin I High Sens 203.6 H* Total Protein Albumin Globulin Albumin/Globulin Ratio Lipase Urine Color YELLOW Urine Clarity CLEAR Urine pH 7.0 Ur Specific [place] 1.010 Urine Protein NEGATIVE Urine Glucose (UA) NEGATIVE Urine Ketones NEGATIVE Urine Occult Blood NEGATIVE Urine Nitrite NEGATIVE Urine Bilirubin NEGATIVE Urine Urobilinogen 0.2 (NORMAL) Ur Leukocyte Esterase NEGATIVE Ur Microscopic Review NOT INDICATED Urine Culture Comments NOT INDICATED - Rads (name of study) ct angio chest Radiology: See rad report (mult bilat emboli with R heart strain) PD MEDICAL DECISION MAKING - ED course Complexity details: reviewed old records, re-evaluated patient, d/w patient, d/w family ED course: 0946: Patient had an IV started. His blood pressures were in the 100s systolic. He was sent to the radiology department for 2 view chest x-ray but when he was standing for the lateral he got really weak and lightheaded and they sat him down before he fell. He was brought immediately back to the department. His AP chest does not show any significant infiltrate. The infiltrate that was present in the right lower lobe previously this month looks like it is been cleared. His d-dimer came back over thousand and his troponin is over 300. His lactic acid is above 3. GFR is low but above 30 so I ordered a CT angiogram of the chest. 1045: CT of the chest showed large clot burden bilaterally with right heart strain. I went to put the order in for heparin and it popped up the allergy potential due to a medication called Elmiron. Patient has never had heparin and I discussed with the Pharmacist. They felt that the risk of any significant reaction was low to minimal. Heparin orders have been placed. 1536: I finally spoke with the casting and curing operator at [facility]. They can talk with the senior accountant analyst to see if they we would warrant intra- arterial thrombolysis versus admission to the hospitalist for heparinization. 1456: The [facility] transfer center called back and told the staff that the patient had been accepted for transfer and gave us a bed number so we have called for ambulance transport. Departure - Departure Disposition: 02 Transfer Acute Care Hosp Clinical Impression: Pulmonary embolism Qualifiers: Pulmonary embolism type: unspecified Chronicity: acute Acute cor pulmonale presence: unspecified Qualified Code(s): I26.99 - Other pulmonary embolism without acute cor pulmonale Condition: Stable Discharge Date/Time: 10/01/19 16:36
[2019-10-01] MEDS ORDERED: SODIUM CHLORIDE 0.9% 1,000 ML IV ONE (08:43)
[2019-10-01 09:18] LABS: BASOPHILS # (AUTO) 0.1 10^3/uL (0.0-0.1); BASOPHILS % (AUTO) 0.7 %; EOSINOPHILS % (AUTO) 0.1 %; HGB - HEMOGLOBIN 17.4 g/dL (14.0-18.0); LYMPHOCYTES # (AUTO) 3.1 10^3/uL (1.5-3.5); LYMPHOCYTES % (AUTO) 21.6 %; MEAN CORPUSCULAR HEMOGLOBIN 31.6 pg (27.0-31.0); MEAN CORPUSCULAR HGB CONC 34.1 g/dL (32.0-36.0); MEAN CORPUSCULAR VOLUME 92.6 fL (80.0-94.0); MEAN PLATELET VOLUME 9.9 fL (7.4-11.4); MONOCYTES # (AUTO) 1.1 10^3/uL (0.0-1.0); MONOCYTES % (AUTO) 7.7 %; NEUTROPHILS # (AUTO) 9.9 10^3/uL (1.5-6.6); NEUTROPHILS % (AUTO) 69.3 %; PLT - PLATELET COUNT 320 10^3/uL (130-450); RED BLOOD COUNT 5.51 10^6/uL (4.70-6.10); RED CELL DISTRIBUTION WIDTH 12.8 % (12.0-15.0); WHITE BLOOD COUNT 14.3 x10^3/uL (4.8-10.8)
[2019-10-01 09:34] LABS: BILIRUBIN,URINE NEGATIVE (NEGATIVE); GLUCOSE, URINE (UA) NEGATIVE (NEGATIVE); KETONES,URINE (UA) NEGATIVE (NEGATIVE); LEUKOCYTE ESTERASE, URINE NEGATIVE (NEGATIVE); NITRITE,URINE NEGATIVE (NEGATIVE); OCCULT BLOOD,URINE NEGATIVE (NEGATIVE); PROTEIN,URINE NEGATIVE (NEGATIVE); UROBILINOGEN,URINE 0.2 (NORMAL) E.U./dL (NORMAL)
[2019-10-01 09:34] LABS: ALBUMIN 4.5 g/dL (3.2-5.5); ALBUMIN/GLOBULIN RATIO 1.1 (1.0-2.2); BILIRUBIN,TOTAL 1.3 mg/dL (0.2-1.0); CALCIUM 10.4 mg/dL (8.5-10.3); CREATININE 1.3 mg/dL (0.6-1.2); TOTAL PROTEIN 8.6 g/dL (6.7-8.2)
[2019-10-01 09:35] LABS: CLARITY,URINE CLEAR (CLEAR)
--- NOTE | 2019-10-01 09:40 | XRAY Report ---
Reason: COUGH Procedure Date: 10/01/2019 Accession Number: [id number] / [id number] Procedure: XR - Chest 1 View X-Ray CPT Code: 72287 Final Report FULL RESULT: EXAM: CHEST RADIOGRAPHY EXAM DATE: 10/01/2019 09:03 AM. CLINICAL HISTORY: COUGH. COMPARISON: CHEST 1 VIEW 07/12/2019 11:39 PM CHEST 2 VIEW PA/LAT 12/27/2013 11:16 AM. TECHNIQUE: 1 view. FINDINGS: Lungs/Pleura: Lungs are well expanded. There is increased opacity projecting over the upper left chest. No evidence of pleural effusion. No pneumothorax. Mediastinum: Within exam limitations, the cardiomediastinal contour is normal. Other: There are remote left inferolateral rib fractures. IMPRESSION: 1. Normal lung volumes and heart size. 2. There is increased opacity projecting over the left upper lateral chest, at the level of the second rib. This is new since the previous examination. This could represent area of infiltrate. Interval follow-up film posttreatment recommended to demonstrate resolution of this process and to exclude underlying pathology. 3. No other focal areas of airspace disease are seen. 4. There is no evidence of pneumothorax. RADIA
[2019-10-01] MEDS ORDERED: IOVERSOL 320 100 ML VIAL IVP ONE ×2 (09:43→11:36)
--- NOTE | 2019-10-01 10:26 | CT Report ---
Reason: dyspnea Procedure Date: 10/01/2019 Accession Number: [id number] / [id number] Procedure: CT - ANGIO CHEST W/WO CPT Code: Final Report FULL RESULT: EXAM: CT ANGIOGRAM CHEST EXAM DATE: 10/01/2019 10:07 AM. CLINICAL HISTORY: Dyspnea. COMPARISON: ABDOMEN/PELVIS W/ 03/30/2014 3:08 PM CHEST 2 VIEW 10/01/2019 8:47 AM CHEST 1 VIEW 07/12/2019 11:39 PM. TECHNIQUE: Routine helical imaging was performed through the chest in the pulmonary arterial phase. IV Contrast: OPTI 320 80ML. Reconstructions: Coronal 3-D MIP reconstructions.Sagittal and coronal. In accordance with CT protocol optimization, one or more of the following dose reduction techniques were utilized for this exam: automated exposure control, adjustment of mA and/or KV based on patient size, or use of iterative reconstructive technique. FINDINGS: Pulmonary Arteries: Diagnostic quality: Adequate through the segmental arteries. Study is positive for pulmonary embolism. Moderate to large clot burden within branch vessels supplying all lung lobes. Greatest clot burden within the lower lobes. There is flattening of the interventricular septum. RV/LV ratio is greater than 1. There is reflux of contrast into the IVC. Lungs/Pleura: There is a rounded area of juxtapleural consolidation within the right lower lobe. There is adjacent pleural effusion. Within the left upper lobe, there is an area tracks or pleural consolidation with some associated groundglass opacity. Their small areas of juxtapleural consolidation within the lingula and right middle lobe. Mosaic parenchymal pattern within the lung bases could be secondary to pulmonary embolism. There is no evidence of pneumothorax. Mediastinum: Heart size is within normal limits. There are no enlarged axillary, supraclavicular, mediastinal, or hilar lymph nodes. Thoracic Aorta: There is no evidence of aortic dissection or aneurysm. Upper Abdomen: There is a small nonobstructing stone within the right kidney. The visualized portions of the upper abdominal organs demonstrate no clearly acute abnormalities. Other: None. IMPRESSION: 1. Study is positive for pulmonary embolism with large clot burden and CT evidence of right heart strain. 2. Areas of juxtapleural consolidation within the left upper lobe, lingula, and right middle lobe are suspicious for developing pulmonary infarct. 3. There is a focus of rounded juxtapleural consolidation within the right lower lobe. Differential considerations include pulmonary infarct, rounded atelectasis, or lung mass. There is a small adjacent pleural effusion. Interval follow-up imaging recommended to demonstrate resolution of this finding. 4. No evidence of thoracic aortic dissection or aneurysm. 5. There is right nephrolithiasis. RADIA The above call report findings were discussed with Tarsha Augustin by Dr. Deanna Rodriguez at 10:23 AM on 10/01/2019.
[2019-10-01] MEDS ORDERED: HEPARIN 5,000 UNIT/ML VIAL IVP ONE (10:41)
[2019-10-01] MEDS ORDERED: HEPARIN 25000UNITS/500ML (D5W) 25,000 UNIT/500 ML BAG IV SCH (11:00)
[2019-10-01 15:48] VITALS: BP 105/83
== END 2019-10-01 16:36 | disposition short-term general hospital (02) ==
LOC: ED 08:15
DX: I26.99 Other pulmonary embolism without acute cor pulmonale (principal); R55 Syncope and collapse; I10 Essential (primary) hypertension; F17.200 Nicotine dependence, unspecified, uncomplicated
CPT/HCPCS: 36415; 71045; 71275; 80053; 81003; 83605; 83690; 84484; 85025; 85379; 87040; 93005; 96361; 96374; 99284; 99285; Q9967; 81001; 87086

== ENCOUNTER 2019-10-01 16:46 | Outpatient (CLI) | payer MEDICAID | END 2019-10-01 16:47 | disposition short-term general hospital (02) | LOC: EMS 16:46 | PROVIDERS: ATTEND Surgery | DX: I26.99 Other pulmonary embolism without acute cor pulmonale (principal); I51.9 Heart disease, unspecified | CPT/HCPCS: A0425; A0426 ==

== ENCOUNTER 2019-10-22 14:25 | Outpatient (CLI) | payer MEDICAID | END 2019-10-22 14:26 | disposition home or self-care (01) | LOC: DI 14:25 | PROVIDERS: ATTEND Physician Assistant Medical | DX: I26.99 Other pulmonary embolism without acute cor pulmonale (principal) | CPT/HCPCS: 93306 ==

== ENCOUNTER 2019-10-27 14:23 | Emergency (ER) | payer MEDICAID ==
--- NOTE | 2019-10-27 15:37 | XRAY Report ---
Reason: CHEST PAIN Procedure Date: 10/27/2019 Accession Number: [id number] / [id number] Procedure: XR - Chest 2 View X-Ray CPT Code: 32270 Final Report FULL RESULT: EXAM: CHEST RADIOGRAPHY EXAM DATE: 10/27/2019 02:56 PM. CLINICAL HISTORY: CHEST PAIN. COMPARISON: CHEST 2 VIEW 10/01/2019 8:47 AM CHEST ANGIO 10/01/2019 9:59 AM. TECHNIQUE: 2 views. FINDINGS: Lungs/Pleura: Peripheral mild small nodular opacities in the lateral left upper lobe and lateral right lower lobe. No new infiltrates evident. No pleural effusion. No pneumothorax. Normal volumes. Mediastinum: Heart and mediastinal contours are unremarkable. Other: No compression fractures. IMPRESSION: Mild peripheral opacities in the lateral left upper lobe and lateral right lower lobe. Consider 3-6 month follow-up. RADIA
[2019-10-27 15:59] LABS: BASOPHILS # (AUTO) 0.1 10^3/uL (0.0-0.1); EOSINOPHILS # (AUTO) 0.1 10^3/uL (0.0-0.7); EOSINOPHILS % (AUTO) 1.4 %; HGB - HEMOGLOBIN 16.2 g/dL (14.0-18.0); LYMPHOCYTES # (AUTO) 2.8 10^3/uL (1.5-3.5); LYMPHOCYTES % (AUTO) 40.1 %; MEAN CORPUSCULAR HEMOGLOBIN 31.8 pg (27.0-31.0); MEAN CORPUSCULAR HGB CONC 34.5 g/dL (32.0-36.0); MEAN PLATELET VOLUME 10.5 fL (7.4-11.4); MONOCYTES # (AUTO) 0.8 10^3/uL (0.0-1.0); MONOCYTES % (AUTO) 11.1 %; NEUTROPHILS # (AUTO) 3.2 10^3/uL (1.5-6.6); NEUTROPHILS % (AUTO) 46.3 %; PLT - PLATELET COUNT 232 10^3/uL (130-450)
[2019-10-27 16:16] LABS: ALBUMIN 4.4 g/dL (3.2-5.5); ALBUMIN/GLOBULIN RATIO 1.3 (1.0-2.2); BILIRUBIN,TOTAL 0.9 mg/dL (0.2-1.0); CALCIUM 9.8 mg/dL (8.5-10.3); TOTAL PROTEIN 7.7 g/dL (6.7-8.2)
[2019-10-27] MEDS ORDERED: SODIUM CHLORIDE 0.9% 1,000 ML IV ONE (17:40)
--- NOTE | 2019-10-27 17:46 | ED Physician Documentation ---
History of Present Illness - Stated complaint Stated Complaint: CP, DIZZY - Chief complaint Chief Complaint: Resp - History obtained from History obtained from: Patient - History of Present Illness Timing: How many days ago (3) Pain level max: 2 Pain level now: 0 - Additonal information Additional information: 49-year-old male presents to the emergency department with right-sided chest discomfort for the past 2 to 3 days. Last month he was transferred to [facility] in [place] for multiple bilateral pulmonary emboli with right heart strain. Had an elevated troponin at that time. Has been on Xarelto since that time. He states he has not been eating and drinking well lately. Feels lightheaded with standing. Better with rest. Does not use oxygen at home. No missed doses of his medications. Currently asymptomatic. Note the initial O2 saturation of 26 was in error. His initial O2 sat was 99% on room air Worse with standing Review of Systems Constitutional: denies: Fever, Chills Ears: denies: Ear pain Nose: denies: Rhinorrhea / runny nose, Congestion Throat: denies: Dental pain / toothache, Sore throat Cardiac: reports: Chest pain / pressure (Intermittent pressure, last for a few minutes at a time. Nonradiating.). denies: Palpitations Respiratory: denies: Dyspnea, Cough, Wheezing GI: denies: Vomiting, Diarrhea Skin: denies: Rash Musculoskeletal: denies: Neck pain, Back pain Neurologic: denies: Headache PD PAST MEDICAL HISTORY - Past Medical History Past Medical History: Yes Cardiovascular: Hypertension, Pulmonary embolism Respiratory: None, Other Neuro: None Endocrine/Autoimmune: None GI: None : None HEENT: Chronic sinusitis Psych: Depression, Anxiety, Bipolar disorder, Panic attacks, ADD/ADHD, Post traumatic stress disorder, Claustrophobia Musculoskeletal: Gout Derm: None - Past Surgical History Past Surgical History: Yes Ortho: Rotator cuff repair, Other HEENT: Tonsil/Adenoidectomy - Present Medications Home Medications: Ambulatory Orders Medication Instructions Recorded Confirmed FLUoxetine [PROzac] 40 mg PO DAILY 12/27/13 06/28/17 Mirtazapine [Remeron] 7.5 mg PO HS 12/27/13 06/28/17 LORazepam [Lorazepam] 1 mg PO DAILY PRN 05/08/14 06/28/17 lamoTRIgine [LaMICtal] 200 mg PO BID 05/08/14 06/28/17 Olanzapine [Zyprexa] 30 mg PO 04/28/15 06/28/17 Omeprazole 20 mg PO DAILY 04/28/15 06/28/17 Divalproex Sodium [Depakote] 500 mg PO BID 01/21/16 06/28/17 busPIRone [Buspar] 30 mg PO BID 01/21/16 06/28/17 buPROPion HCl [Bupropion HCl ER] 200 mg PO DAILY 12/18/17 12/18/17 Oxycodone HCl/Acetaminophen 1 - 2 each PO Q6H PRN #14 tablet 05/07/19 [Percocet 5-325 mg Tablet] predniSONE [Deltasone] 60 mg PO DAILY 5 Days #15 tablet 05/07/19 Doxycycline Hyclate 100 mg PO BID #20 capsule 07/13/19 - Allergies Allergies/Adverse Reactions: Allergies Allergy/AdvReac Type Severity Reaction Status Date / Time risperidone [From Risperdal] Allergy Severe Edema Verified 10/27/19 14:40 rofecoxib [From Vioxx] Allergy Severe rapid Verified 10/27/19 14:40 heart rate celecoxib [From Celebrex] Allergy Intermediate elevated HR Verified 10/27/19 14:40 NSAIDS (Non-Steroidal Allergy Intermediate Respiratory Verified 10/27/19 14:40 Anti-Inflamma pentosan polysulfate sodium Allergy Mild Unknown Verified 10/27/19 14:40 [From Elmiron] - Social History Does the pt smoke?: Yes Smoking Status: Current every day smoker Does the pt drink ETOH?: No Does the pt have substance abuse?: Yes Substance Use and Type: Marijuana - Immunizations Immunizations are current?: Yes - POLST Patient has POLST: No PD ED PE NORMAL - Vitals Vital signs reviewed: Yes - General General: Alert and oriented X 3, No acute distress, Well developed/nourished - HEENT HEENT: Moist mucous membranes - Neck Neck: Supple, no meningeal sign - Cardiac Cardiac: RRR, Strong equal pulses - Respiratory Respiratory: No respiratory distress, Clear bilaterally - Abdomen Abdomen: Soft, Non tender, Non distended - Derm Derm: Warm and dry - Extremities Extremities: No edema - Neuro Neuro: Alert and oriented X 3, maxillofacial surgeon 2-12 intact, No motor deficit, No sensory deficit - Psych Psych: Normal mood, Normal affect Results - Vitals Vitals: Vital Signs - 24 hr 10/27/19 10/27/19 10/27/19 14:35 16:59 18:00 Temperature 36.7 C 36.4 C L Heart Rate 92 72 73 Heart Rate [ 69 Sitting] Heart Rate [ 85 Standing] Heart Rate [ 77 Supine] Respiratory 20 18 22 Rate Blood Pressure 110/78 120/88 H 120/82 H Blood Pressure 112/83 H [Sitting] Blood Pressure 112/81 H [Standing] Blood Pressure 120/88 H [Supine] O2 Saturation 26 L 100 100 Oxygen O2 Source Room air - EKG (time done) 1434 Rate: Rate (enter#) (87) Rhythm: NSR [place]: Normal Intervals: Normal [place] QRS: Normal Ischemia: Normal ST segments - Labs Labs: Laboratory Tests 10/27/19 10/27/19 10/27/19 15:49 15:49 15:49 WBC 7.0 RBC 5.10 Hgb 16.2 Hct 46.9 MCV 92.0 MCH 31.8 H MCHC 34.5 RDW 13.0 Plt Count 232 MPV 10.5 Neut # (Auto) 3.2 Lymph # (Auto) 2.8 [place] # (Auto) 0.8 Eos # (Auto) 0.1 Baso # (Auto) 0.1 Absolute Nucleated RBC 0.00 Nucleated RBC % 0.0 Sodium 142 Potassium 4.4 Chloride 105 Carbon Dioxide 25 Anion Gap 12.0 BUN 7 Creatinine 1.0 Estimated GFR (MDRD) 80 L Glucose 95 Calcium 9.8 Total Bilirubin 0.9 AST 19 ALT 24 Alkaline Phosphatase 70 Troponin I High Sens 2.9 Total Protein 7.7 Albumin 4.4 Globulin 3.3 Albumin/Globulin Ratio 1.3 Lipase 28 - Rads (name of study) cxr Radiology: Prelim report reviewed, EMP read contemporaneously, See rad report (Mild peripheral opacities in the lateral left upper lobe and lateral right lower lobe. Consider 3-6 month follow-up. ) PD MEDICAL DECISION MAKING - ED course Complexity details: reviewed results, re-evaluated patient, considered differential, d/w patient ED course: Patient feels much better after IV fluids. Symptoms resolved. Appears to be related to dehydration. No evidence of recurrent pulmonary embolus. No hypoxia or tachycardia. Negative troponin. Patient request to go home at this time. Does not want a repeat CT scan. Patient counseled regarding signs and symptoms for which I believe and urgent re-evaluation would be necessary. Patient with good understanding of and agreement to plan and is comfortable going home at this time This document was made in part using voice recognition software. While efforts are made to proofread this document, sound alike and grammatical errors may occur. Departure - Departure Disposition: 01 Home, Self Care Clinical Impression: Dehydration Chest pain Qualifiers: Chest pain type: unspecified Qualified Code(s): R07.9 - Chest pain, unspecified Condition: Good Instructions: ED Chest Pain Atypical Unkn Cause, ED Dehydration Follow-Up: Andrew Berrios PA-C [Primary Care Provider] - Within 3 Days Comments: Return if you worsen. Your labs appear stable today. You were dehydrated, please drink more water at home. Continue your Xarelto. Discharge Date/Time: 10/27/19 18:34
[2019-10-27 18:12] VITALS: BP 120/82
== END 2019-10-27 18:34 | disposition home or self-care (01) ==
LOC: ED 14:23
DX: E86.0 Dehydration (principal); R07.9 Chest pain, unspecified; R91.8 Other nonspecific abnormal finding of lung field; I10 Essential (primary) hypertension; F17.200 Nicotine dependence, unspecified, uncomplicated
CPT/HCPCS: 36415; 71046; 80053; 83690; 84484; 85025; 93005; 99284

== ENCOUNTER 2020-01-26 10:38 | Emergency (ER) | payer MEDICAID ==
[2020-01-26 11:29] LABS: BASOPHILS # (AUTO) 0.1 10^3/uL (0.0-0.1); BASOPHILS % (AUTO) 0.7 %; EOSINOPHILS # (AUTO) 0.1 10^3/uL (0.0-0.7); EOSINOPHILS % (AUTO) 1.2 %; HGB - HEMOGLOBIN 16.6 g/dL (14.0-18.0); LYMPHOCYTES # (AUTO) 2.2 10^3/uL (1.5-3.5); LYMPHOCYTES % (AUTO) 30.5 %; MEAN CORPUSCULAR HEMOGLOBIN 32.7 pg (27.0-31.0); MEAN CORPUSCULAR HGB CONC 35.5 g/dL (32.0-36.0); MEAN CORPUSCULAR VOLUME 92.1 fL (80.0-94.0); MEAN PLATELET VOLUME 10.4 fL (7.4-11.4); MONOCYTES # (AUTO) 0.8 10^3/uL (0.0-1.0); MONOCYTES % (AUTO) 10.7 %; NEUTROPHILS # (AUTO) 4.1 10^3/uL (1.5-6.6); NEUTROPHILS % (AUTO) 56.8 %; PLT - PLATELET COUNT 323 10^3/uL (130-450); RED BLOOD COUNT 5.08 10^6/uL (4.70-6.10); RED CELL DISTRIBUTION WIDTH 12.1 % (12.0-15.0); WHITE BLOOD COUNT 7.3 x10^3/uL (4.8-10.8)
[2020-01-26 11:47] LABS: ALBUMIN 4.5 g/dL (3.2-5.5); ALBUMIN/GLOBULIN RATIO 1.3 (1.0-2.2); BILIRUBIN,TOTAL 1.3 mg/dL (0.2-1.0); CALCIUM 9.6 mg/dL (8.5-10.3); CREATININE 0.9 mg/dL (0.6-1.2); TOTAL PROTEIN 8.1 g/dL (6.7-8.2)
--- NOTE | 2020-01-26 11:48 | XRAY Report ---
Reason: Chest Pain Procedure Date: 01/26/2020 Accession Number: [id number] / [id number] Procedure: XR - Chest 1 View X-Ray CPT Code: 06291 Final Report FULL RESULT: EXAM: CHEST RADIOGRAPHY EXAM DATE: 01/26/2020 11:28 AM. CLINICAL HISTORY: Chest Pain. COMPARISON: CHEST 2 VIEW 10/27/2019 2:52 PM CHEST ANGIO 10/01/2019 9:59 AM CHEST 2 VIEW 10/01/2019 8:47 AM. TECHNIQUE: 1 view. FINDINGS: Lungs/Pleura: Nodular peripheral pulmonary opacities in the left upper lung and right lung base are increased in density compared to the prior exam on 10/27/2019. No pleural effusion. No pneumothorax. Mediastinum: Within exam limitations, the cardiomediastinal contour is normal. Other: No acute osseous abnormality. There is an old healed fracture deformity of the left lateral ninth through, as seen on prior exams. IMPRESSION: Nodular peripheral pulmonary opacities in the left upper lung and right lung base are increased in density compared to 10/27/2019. These may represent evolving areas of infarct, pulmonary nodules, or pneumonia in the appropriate clinical setting. RADIA
--- NOTE | 2020-01-26 12:54 | ED Physician Documentation ---
PD HPI CHEST PAIN - Stated complaint Stated Complaint: CP/SOA - Chief complaint Chief Complaint: Cardiac - History obtained from History obtained from: Patient (49-year-old gentleman history of submassive PE this last September treated with EK OS thrombolytic therapy. Now on Xarelto which he says he is compliant with. For the last 4 days he has had pleuritic left- sided chest pain worse with deep breathing and certain motions. It is almost nonexistent when he breathes out. He denies cough or shortness of breath. No pedal edema or calf pain.) Review of Systems Ten Systems: 10 systems reviewed and negative Constitutional: denies: Fever, Chills Cardiac: denies: Palpitations, Pedal edema, Calf pain Respiratory: denies: Hemoptysis, Wheezing PD PAST MEDICAL HISTORY - Past Medical History Cardiovascular: Hypertension, Pulmonary embolism Respiratory: None, Other Neuro: None Endocrine/Autoimmune: None GI: None : None HEENT: Chronic sinusitis Psych: Depression, Anxiety, Bipolar disorder, Panic attacks, ADD/ADHD, Post traumatic stress disorder, Claustrophobia Musculoskeletal: Gout Derm: None - Past Surgical History Past Surgical History: Yes Ortho: Rotator cuff repair, Other HEENT: Tonsil/Adenoidectomy - Present Medications Home Medications: Ambulatory Orders Medication Instructions Recorded Confirmed FLUoxetine [PROzac] 40 mg PO DAILY 12/27/13 06/28/17 Mirtazapine [Remeron] 7.5 mg PO HS 12/27/13 06/28/17 LORazepam [Lorazepam] 1 mg PO DAILY PRN 05/08/14 06/28/17 lamoTRIgine [LaMICtal] 200 mg PO BID 05/08/14 06/28/17 Olanzapine [Zyprexa] 30 mg PO 04/28/15 06/28/17 Omeprazole 20 mg PO DAILY 04/28/15 06/28/17 Divalproex Sodium [Depakote] 500 mg PO BID 01/21/16 06/28/17 busPIRone [Buspar] 30 mg PO BID 01/21/16 06/28/17 buPROPion HCl [Bupropion HCl ER] 200 mg PO DAILY 12/18/17 12/18/17 Oxycodone HCl/Acetaminophen 1 - 2 each PO Q6H PRN #14 tablet 08/28/19 [Percocet 5-325 mg Tablet] predniSONE [Deltasone] 60 mg PO DAILY 5 Days #15 tablet 05/07/19 Doxycycline Hyclate 100 mg PO BID #20 capsule 07/13/19 Azithromycin 1 tab PO DAILY #4 tablet 01/26/20 Oxycodone HCl/Acetaminophen 1 - 2 each PO Q6H PRN #14 tablet 01/26/20 [Percocet 5-325 mg Tablet] - Allergies Allergies/Adverse Reactions: Allergies Allergy/AdvReac Type Severity Reaction Status Date / Time risperidone [From Risperdal] Allergy Severe Edema Verified 01/26/20 11:05 rofecoxib [From Vioxx] Allergy Severe rapid Verified 01/26/20 11:05 heart rate celecoxib [From Celebrex] Allergy Intermediate elevated HR Verified 01/26/20 11:05 NSAIDS (Non-Steroidal Allergy Intermediate Respiratory Verified 01/26/20 11:05 Anti-Inflamma pentosan polysulfate sodium Allergy Mild Unknown Verified 01/26/20 11:05 [From Elmiron] - Social History Does the pt smoke?: Yes Smoking Status: Current every day smoker Does the pt drink ETOH?: No Does the pt have substance abuse?: Yes - Immunizations Immunizations are current?: Yes - POLST Patient has POLST: No PD ED PE NORMAL - Vitals Vital signs reviewed: Yes (Slight tachycardia) - General General: Alert and oriented X 3, No acute distress - HEENT HEENT: PERRL, EOMI - Neck Neck: Supple, no meningeal sign, No bony TTP - Cardiac Cardiac: RRR, No murmur - Respiratory Respiratory: No respiratory distress, Clear bilaterally - Abdomen Abdomen: Non tender - Back Back: No CVA TTP, No spinal TTP - Derm Derm: Normal color, Warm and dry - Extremities Extremities: No edema, No calf tenderness / cord - Neuro Neuro: Alert and oriented X 3, Normal speech - Psych Psych: Normal mood, Normal affect Results - Vitals Vitals: Vital Signs - 24 hr 01/26/20 01/26/20 11:05 12:07 Temperature 37.1 C Heart Rate 104 H 104 H Respiratory 20 16 Rate Blood Pressure 141/86 H 145/98 H O2 Saturation 98 98 Oxygen O2 Source Room air - EKG (time done) 1115 Rate: Rate (enter#) (90) Rhythm: NSR [place]: Normal Intervals: Normal [place] QRS: Normal Ischemia: Normal ST segments Computer interpretation: Agree with computer - Labs Labs: Laboratory Tests 01/26/20 01/26/20 01/26/20 11:20 11:20 11:20 WBC 7.3 RBC 5.08 Hgb 16.6 Hct 46.8 MCV 92.1 MCH 32.7 H MCHC 35.5 RDW 12.1 Plt Count 323 MPV 10.4 Neut # (Auto) 4.1 Lymph # (Auto) 2.2 [place] # (Auto) 0.8 Eos # (Auto) 0.1 Baso # (Auto) 0.1 Absolute Nucleated RBC 0.00 Nucleated RBC % 0.0 Sodium 140 Potassium 3.9 Chloride 104 Carbon Dioxide 26 Anion Gap 10.0 BUN 10 Creatinine 0.9 Estimated GFR (MDRD) 90 Glucose 102 H Calcium 9.6 Total Bilirubin 1.3 H AST 16 ALT 16 Alkaline Phosphatase 84 Troponin I High Sens < 2.3 L Total Protein 8.1 Albumin 4.5 Globulin 3.6 Albumin/Globulin Ratio 1.3 Lipase 33 PD MEDICAL DECISION MAKING - ED course ED course: 49-year-old gentleman with history of submassive pulmonary embolism presents with pleuritic left-sided chest pain in the setting being compliant with his direct acting oral anticoagulant. Differential diagnosis includes pneumonia, PE, musculoskeletal chest pain, ACS. No evidence of ACS on work-up. CT scan of the chest demonstrates no acute PE but some small peripheral consolidations which are concerning for him from a perspective of either a previous infarct, atelectasis, or peripheral pneumonia. Only the latter would require specific treatment and he is administered a Z-Suleman. Departure - Departure Disposition: 01 Home, Self Care Clinical Impression: Atypical chest pain, Pneumonia Condition: Good Record reviewed to determine appropriate education?: Yes Instructions: ED Pneumonia Adult, ED Chest Pain Atypical Unkn Cause Prescriptions: Azithromycin 1 tab PO DAILY #4 tablet Oxycodone HCl/Acetaminophen [Percocet 5-325 mg Tablet] 1 - 2 each PO Q6H PRN #14 tablet PRN Reason: pain Comments: You presented today with pleuritic left-sided chest pain. None of your heart work-up is abnormal, you do have some peripheral consolidations which could be infarct from prior pulmonary embolism or it could be a small pneumonia. Return for new or worsening symptoms. Follow-up with your doctor, next available appointment.
[2020-01-26] MEDS ORDERED: IOVERSOL 320 100 ML VIAL IVP ONE ×3 (13:02→13:54)
[2020-01-26] MEDS ORDERED: HYDROcod/ACETAM 5/325 MG TABLET PO STA (13:37)
--- NOTE | 2020-01-26 14:09 | CT Report ---
Reason: pleuritic cp, H/O PE, pe protocol Procedure Date: 01/26/2020 Accession Number: [id number] / [id number] Procedure: CT - ANGIO CHEST W/WO CPT Code: Final Report FULL RESULT: EXAM: CT ANGIOGRAM CHEST EXAM DATE: 01/26/2020 01:32 PM. CLINICAL HISTORY: Pleuritic cp, H/O PE, pe protocol. COMPARISON: CHEST ANGIO 10/01/2019 9:59 AM. TECHNIQUE: Routine helical imaging was performed through the chest in the pulmonary arterial phase. IV Contrast: 80 cc Optiray 320 IV. Reconstructions: Coronal 3-D MIP reconstructions. Sagittal and coronal. In accordance with CT protocol optimization, one or more of the following dose reduction techniques were utilized for this exam: automated exposure control, adjustment of mA and/or KV based on patient size, or use of iterative reconstructive technique. FINDINGS: Pulmonary Arteries: Diagnostic quality: Adequate vessel enhancement through the segmental arteries. There is respiratory motion artifact in the lower lobes obscuring visualization of the distal segmental arteries. No evidence of acute pulmonary embolism. Previously seen pulmonary emboli in the lobar and segmental vessels have resolved. The distal segmental vessels in the lower lobes are small in size, probably sequela of old pulmonary embolism. Name pulmonary artery size is normal. Lungs/Pleura: There is a small right pleural effusion. Negative for left pleural effusion. There are peripheral areas of consolidation within the right lower lobe, right middle lobe, left upper lobe. There is a linear opacity within the left lower lobe with architectural distortion. There is a calcified granuloma in the superior segment left lower lobe consistent with old granulomatous disease, unchanged. Mediastinum: The heart size is normal. There are calcified left hilar and mediastinal lymph nodes consistent with old granulomatous disease. Negative for pericardial effusion. Thoracic Aorta: No thoracic aortic aneurysm or dissection. Upper Abdomen: Unremarkable. Other: None. IMPRESSION: 1. No findings of acute pulmonary embolism. The previously seen lobar and segmental pulmonary emboli have resolved. The bilateral lower lobe distal segmental vessels are small in size and not well seen, likely reflecting chronic pulmonary embolism. 2. Small right pleural effusion 3. Multiple small peripheral consolidations. Differential including peripheral pulmonary infarcts from previous pulmonary emboli, atelectasis, or peripheral pneumonia. RADIA
[2020-01-26] MEDS ORDERED: oxyCODONE 5 MG TABLET PO STA (14:19)
[2020-01-26] MEDS ORDERED: AZITHROMYCIN 250 MG TABLET PO STA (14:19)
[2020-01-26 14:45] VITALS: BP 147/87
== END 2020-01-26 14:45 | disposition home or self-care (01) ==
LOC: ED 10:38
DX: J18.9 Pneumonia, unspecified organism (principal); J90 Pleural effusion, not elsewhere classified; R07.89 Other chest pain; Z86.711 Personal history of pulmonary embolism; Z79.01 Long term (current) use of anticoagulants; I10 Essential (primary) hypertension; F17.200 Nicotine dependence, unspecified, uncomplicated
CPT/HCPCS: 36415; 71045; 71275; 80053; 83690; 84484; 85025; 93005; 99284; A9270; Q9967

== ENCOUNTER 2020-02-16 08:00 | Outpatient (CLI) | payer MEDICAID ==
--- NOTE | 2020-02-16 12:12 | XRAY Report ---
Reason: CUBITAL TUNNEL SYNDROME Procedure Date: 02/16/2020 Accession Number: [id number] / [id number] Procedure: WCP - Elbow 3 View LT CPT Code: Final Report FULL RESULT: PROCEDURE: Elbow 3 View LT INDICATIONS: CUBITAL TUNNEL SYNDROME TECHNIQUE: 3 views of the elbow were acquired. COMPARISON: None FINDINGS: Bones: No fractures or dislocations. No suspicious bony lesions. Osteoarthritic changes are noted in the elbow joint with joint space narrowing and mild subchondral sclerosis. Soft tissues: No elbow joint effusion. No suspicious soft tissue calcifications. IMPRESSION: Mild elbow joint osteoarthritis. No fracture or dislocation. No joint effusion. Reviewed by: Harjeet Fuller MD on 02/16/2020 12:10 PM PDT Approved by: Harjeet Fuller MD on 02/16/2020 12:10 PM PDT Station ID: [id number]
== END 2020-02-16 23:59 | disposition home or self-care (01) ==
LOC: DI.WCP 08:00
PROVIDERS: ATTEND Orthopaedic Surgery
DX: M19.022 Primary osteoarthritis, left elbow (principal)

== ENCOUNTER 2020-09-03 21:42 | Outpatient (CLI) | payer MEDICAID | END 2020-09-03 21:43 | disposition critical access hospital (66) | LOC: EMS 21:42 | PROVIDERS: ATTEND Surgery | DX: R55 Syncope and collapse (principal) | CPT/HCPCS: A0425; A0427 ==

== ENCOUNTER 2020-09-03 21:58 | Emergency (ER) | payer MEDICAID ==
--- NOTE | 2020-09-03 22:14 | ED Physician Documentation ---
PD HPI CHEST PAIN - Stated complaint Stated Complaint: SYNCOPES - Chief complaint Chief Complaint: Cardiac - History obtained from History obtained from: Patient - History of Present Illness Timing - onset: Today (he states he had some pain right lower chest and felt lightheaded with standing abruptly earlier today and again this evening. [place] near syncope. He says similar to when had PE Sep 2019. Has been taking Xarelto without missing doses. No cough nor URI symptoms.) Timing - onset during: Light activity (had lightheaded and near syncope twice today after standing up quickly. Says he was hydrating through day okay. No URI symptoms.) Timing - duration: Minutes Timing - details: Intermittant Quality: Aching, Sharp, Pain Location: Right chest Radiation: Back Worsened by: No: Inspiration, Movement, Palpation Associated symptoms: Shortness of air, Feeling faint / dizzy. No: Nausea, General Weakness, Palpitations Similar symptoms before: Diagnosis (similar to PE a year ago (Sep 2019).) Recently seen: Clinic (Seen [facility] Apr with Dx clotting disorder and plan was anticoag through Sep (1 year) and then repeat CT chest and labs.) Review of Systems Constitutional: denies: Fever, Chills Nose: denies: Rhinorrhea / runny nose, Congestion Throat: denies: Sore throat Cardiac: reports: Chest pain / pressure. denies: Palpitations, Pedal edema, Calf pain Respiratory: denies: Cough, Wheezing GI: denies: Abdominal Pain, Nausea, Vomiting, Diarrhea Neurologic: reports: Near syncope. denies: Generalized weakness, Syncope, Altered mental status PD PAST MEDICAL HISTORY - Past Medical History Past Medical History: Yes Cardiovascular: Hypertension, Pulmonary embolism Respiratory: Other Neuro: None Endocrine/Autoimmune: None GI: None : None HEENT: Chronic sinusitis Psych: Depression, Anxiety, Bipolar disorder, Panic attacks, ADD/ADHD, Post traumatic stress disorder, Claustrophobia Musculoskeletal: Gout Derm: None - Past Surgical History Past Surgical History: Yes Ortho: Rotator cuff repair, Other HEENT: Tonsil/Adenoidectomy - Present Medications Home Medications: Ambulatory Orders Medication Instructions Recorded Confirmed lamoTRIgine [LaMICtal] 200 mg PO BID 05/08/14 09/03/20 Olanzapine [Zyprexa] 30 mg PO DAILY 04/28/15 06/28/17 Divalproex Sodium [Depakote] 500 mg PO BID 01/21/16 09/03/20 Dextroamphetamine/Amphetamine 20 mg PO DAILY 09/03/20 09/03/20 [Adderall 20 mg Tablet] Rivaroxaban [Xarelto] 20 mg PO DAILY 09/03/20 09/03/20 - Allergies Allergies/Adverse Reactions: Allergies Allergy/AdvReac Type Severity Reaction Status Date / Time risperidone [From Risperdal] Allergy Severe Edema Verified 09/03/20 22:07 rofecoxib [From Vioxx] Allergy Severe rapid Verified 09/03/20 22:07 heart rate celecoxib [From Celebrex] Allergy Intermediate elevated HR Verified 09/03/20 22:07 NSAIDS (Non-Steroidal Allergy Intermediate Respiratory Verified 09/03/20 22:07 Anti-Inflamma pentosan polysulfate sodium Allergy Mild Unknown Verified 09/03/20 22:07 [From Elmiron] - Social History Does the pt smoke?: Yes Smoking Status: Current every day smoker Does the pt drink ETOH?: No Does the pt have substance abuse?: Yes - Immunizations Immunizations are current?: Yes - POLST Patient has POLST: No PD ED PE NORMAL - Vitals Vital signs reviewed: Yes - General General: Alert and oriented X 3, No acute distress (not in pain; he is somewhat anxious. ), Well developed/nourished - Neck Neck: Supple, no meningeal sign, No adenopathy - Cardiac Cardiac: RRR, No murmur - Respiratory Respiratory: Clear bilaterally, Other (no chestwall tenderness. ) - Abdomen Abdomen: Soft, Non tender - Derm Derm: Normal color, Warm and dry - Extremities Extremities: No deformity, No tenderness to palpate, Normal ROM s pain, No edema, No calf tenderness / cord - Neuro Neuro: Alert and oriented X 3, No motor deficit, Normal speech Eye Opening: Spontaneous Motor: Obeys Commands Verbal: Oriented GCS Score: 15 - Psych Psych: Normal mood, Normal affect Results - Vitals Vitals: Vital Signs - 24 hr 09/03/20 09/03/20 09/03/20 22:02 22:26 22:50 Temperature 36.6 C Heart Rate 94 88 Respiratory 17 16 17 Rate Blood Pressure 118/75 111/83 H O2 Saturation 100 97 09/03/20 09/03/20 09/03/20 22:51 23:06 23:52 Temperature Heart Rate 88 78 Respiratory 16 15 15 Rate Blood Pressure 92/68 O2 Saturation 97 97 09/04/20 09/04/20 00:16 01:18 Temperature Heart Rate Respiratory 15 6 L Rate Blood Pressure 99/65 O2 Saturation Oxygen O2 Source Room air - EKG (time done) 22:03 Rate: Rate (enter#) (97) Rhythm: NSR [place]: Normal Intervals: Normal DC QRS: Normal Ischemia: Normal ST segments. No: ST elevation c/w ischemia, ST depression - Labs Labs: Laboratory Tests 09/03/20 09/03/20 09/03/20 22:10 22:10 22:10 WBC 8.5 RBC 5.29 Hgb 17.0 Hct 49.0 MCV 92.6 MCH 32.1 H MCHC 34.7 RDW 11.9 L Plt Count 268 MPV 10.4 Neut # (Auto) 4.6 Lymph # (Auto) 3.0 [place] # (Auto) 0.7 Eos # (Auto) 0.2 Baso # (Auto) 0.1 Absolute Nucleated RBC 0.00 Nucleated RBC % 0.0 D-Dimer Sodium Potassium Chloride Carbon Dioxide Anion Gap BUN Creatinine Estimated GFR (MDRD) Glucose Calcium Total Bilirubin AST ALT Alkaline Phosphatase Troponin I High Sens 3.2 B-Natriuretic Peptide 42 Total Protein Albumin Globulin Albumin/Globulin Ratio Ethyl Alcohol 09/03/20 09/03/20 22:10 22:10 WBC RBC Hgb Hct MCV MCH MCHC RDW Plt Count MPV Neut # (Auto) Lymph # (Auto) [place] # (Auto) Eos # (Auto) Baso # (Auto) Absolute Nucleated RBC Nucleated RBC % D-Dimer 225.5 Sodium 136 Potassium 3.9 Chloride 98 L Carbon Dioxide 22 Anion Gap 16.0 H BUN 20 Creatinine 1.2 Estimated GFR (MDRD) 64 L Glucose 103 H Calcium 9.7 Total Bilirubin 1.2 H AST 20 ALT 17 Alkaline Phosphatase 77 Troponin I High Sens B-Natriuretic Peptide Total Protein 7.8 Albumin 4.4 Globulin 3.4 Albumin/Globulin Ratio 1.3 Ethyl Alcohol 41.5 - Rads (name of study) chest CT angio Radiology: Prelim report reviewed (Mild filling defect subsegmental right lower lung. Likely acute as not seen in April 2020 study. Consider possible chronic clot however.), See rad report PD MEDICAL DECISION MAKING - ED course Complexity details: reviewed results (CT with subsegmental filling defect lower right. There had been some clot there as well as central in Sep 2019, and CT Apr 2020 says the contrast did not fill well lower lungs so less visualized. Therefore consider current filling defect acute versus chronic. Ddimer suggests old clot. ), considered differential, d/w patient, d/w managing consultant (train caller [employer] Yany Law - discussed findings and history. Prior CTs Sep and Apr 2020. Given subsegmental finding, normal D-dimer and BNP and vitals, seems likely to be chronic clot as not fitting for new PE.) Departure - Departure Disposition: Home, Self Care Clinical Impression: History of pulmonary embolus (PE), Anticoagulant long-term use Episode of syncope Qualifiers: Syncope type: unspecified Qualified Code(s): R55 - Syncope and collapse Condition: Stable Record reviewed to determine appropriate education?: Yes Instructions: ED Fainting Unkn Cause Follow-Up: Keila Browne ARNP, PUBLIC SAFETY DIRECTOR-C [Primary Care Provider] - DESHAUN HINOJOSA MD [Provider Admit Priv/Credential] - Comments: Hydrated. Continue usual medicines including the Xarelto. Follow-up with Dr. Hinojosa's office on Sunday, call them if you have not heard from them by the afternoon. I talked with the on-call driver's license reviewing officer who felt the total some of the current lab and CT results are likely to be a chronic clot found on the CT scan and no evidence for a new pulmonary embolus. No fluid otherwise in the lungs. He suggest continue with your current anticoagulant of the Xarelto. Discharge Date/Time: 09/04/20 01:29
[2020-09-03] MEDS ORDERED: SODIUM CHLORIDE 0.9% 1,000 ML IV STA (22:27)
[2020-09-03 22:34] LABS: BASOPHILS # (AUTO) 0.1 10^3/uL (0.0-0.1); BASOPHILS % (AUTO) 0.6 %; EOSINOPHILS # (AUTO) 0.2 10^3/uL (0.0-0.7); LYMPHOCYTES % (AUTO) 34.8 %; MEAN CORPUSCULAR HEMOGLOBIN 32.1 pg (27.0-31.0); MEAN CORPUSCULAR HGB CONC 34.7 g/dL (32.0-36.0); MEAN CORPUSCULAR VOLUME 92.6 fL (80.0-94.0); MEAN PLATELET VOLUME 10.4 fL (7.4-11.4); MONOCYTES # (AUTO) 0.7 10^3/uL (0.0-1.0); NEUTROPHILS # (AUTO) 4.6 10^3/uL (1.5-6.6); NEUTROPHILS % (AUTO) 54.5 %; PLT - PLATELET COUNT 268 10^3/uL (130-450); RED BLOOD COUNT 5.29 10^6/uL (4.70-6.10); RED CELL DISTRIBUTION WIDTH 11.9 % (12.0-15.0); WHITE BLOOD COUNT 8.5 x10^3/uL (4.8-10.8)
[2020-09-03] MEDS ORDERED: IOVERSOL 320 100 ML VIAL IVP ONE ×2 (22:40→23:27)
[2020-09-03 22:56] LABS: ALBUMIN 4.4 g/dL (3.2-5.5); ALBUMIN/GLOBULIN RATIO 1.3 (1.0-2.2); BILIRUBIN,TOTAL 1.2 mg/dL (0.2-1.0); CALCIUM 9.7 mg/dL (8.5-10.3); TOTAL PROTEIN 7.8 g/dL (6.7-8.2)
[2020-09-03 23:03] LABS: CREATININE 1.2 mg/dL (0.6-1.2)
[2020-09-04 00:16] VITALS: BP 99/65
--- NOTE | 2020-09-04 10:11 | CT Report ---
PROCEDURE: ANGIO CHEST W/WO INDICATIONS: syncopal episode, chest pain; prior PEs CONTRAST: IV CONTRAST: Optiray 320 ml: 80 PO CONTRAST: *NO PO CONTRAST TECHNIQUE: After the administration of intravenous contrast, 2 mm thick sections acquired from the pulmonary api aurora to the posterior costophrenic angles. 3-dimensional maximum intensity projection (MIP) coronal a nd sagittal reformats were then acquired through the thorax. For radiation dose reduction, the follow ing was used: automated exposure control, adjustment of mA and/or kV according to patient size. COMPARISON: 10/01/2019 FINDINGS: Image quality: Excellent. Pulmonary arteries: Pulmonary arteries are normal in size. There is a small focus of a filling defec t within the subsegmental branches of the right lower lobe. Lungs and pleura: There is an apparent pulmonary nodule involving the lateral right costophrenic angl e within the right lower lobe, as on series 6 image 191, measuring 1.5 cm. Within the right middle lo be laterally and inferiorly, there is an ovoid nodule seen that measures 8 mm, as on series 6 image 2 09. On the prior examination, this can be seen as a larger pulmonary nodule. The areas of right lower lobe nodular opacity seen on the prior examination are resolving, and may be secondary to resolving infarcts. Areas of atelectasis can be seen elsewhere. No pleural effusions or pneumothorax. Central and peripheral airways are patent. Mediastinum: Heart size is normal, without pericardial effusion. No mediastinal or hilar adenopathy . Calcified mediastinal lymph nodes are seen. Thoracic aorta is normal in caliber and enhancement. Esophagus is normal in caliber, without hiatal hernia. Bones and chest wall: No suspicious bony lesions. Ribs and thoracic spine appear intact throughout. The thyroid is normal. No axillary or supraclavicular adenopathy. Abdomen: A calcified granuloma can be seen within the spleen, as on series 5 image 107. Visualized u pper abdominal solid organs appear normal in the early arterial phase of enhancement. IMPRESSION: A small burden of pulmonary embolism can be seen, with subsegmental filling defect within the right l ower lobe. There is a 1.5 cm apparent pulmonary nodule involving the right lateral costophrenic angle within the right lower lobe. Although differential diagnosis includes neoplasm, cannot be seen on the 10/01/2019 examination, and may be secondary to a focus of atelectasis. Please consider a follow-up in approxim ately one month for further evaluation to evaluate for resolution/improvement. Note: This case and recommendations (including difference between this final report and the prelimin en report) discussed by telephone with Dr. Nunez at 9:09 AM [place] time on 09/04/2020. Reviewed by: Shreyas Phelps MD on 09/04/2020 9:10 AM [facility] Approved by: Shreyas Phelps MD on 09/04/2020 9:10 AM [facility] Station ID: [id number]
== END 2020-09-04 01:29 | disposition home or self-care (01) ==
LOC: EDUNIT# → ED 21:58
DX: Z86.711 Personal history of pulmonary embolism (principal); Z79.01 Long term (current) use of anticoagulants; I10 Essential (primary) hypertension; F17.200 Nicotine dependence, unspecified, uncomplicated
CPT/HCPCS: 71275; 80053; 80320; 83880; 84484; 85025; 85379; 93005; 96360; 99284; Q9967

== ENCOUNTER 2021-02-04 09:33 | Outpatient (CLI) | payer MEDICAID ==
[2021-02-04] MEDS ORDERED: IOVERSOL 320 100 ML VIAL IVP ONE ×2 (10:24→12:33)
--- NOTE | 2021-02-04 13:01 | CT Report ---
PROCEDURE: ANGIO CHEST W/WO INDICATIONS: PE CONTRAST: IV CONTRAST: Optiray 320 ml: 80 PO CONTRAST: *NO PO CONTRAST TECHNIQUE: After the administration of intravenous contrast, 2 mm thick sections acquired from the pulmonary api aurora to the posterior costophrenic angles. 3-dimensional maximum intensity projection (MIP) coronal a nd sagittal reformats were then acquired through the thorax. For radiation dose reduction, the follow ing was used: automated exposure control, adjustment of mA and/or kV according to patient size. COMPARISON: 09/03/2020 FINDINGS: Image quality: Excellent. Pulmonary arteries: Pulmonary arteries are normal in size, and demonstrate no intraluminal filling d efects in bilateral main pulmonary arteries and segmental branches to suggest central pulmonary embol ism. There is suggestion of tiny intraluminal filling defect in distal subsegmental branches of righ t lower lobe series 5 image 103 and concerning for residual pulmonary emboli. Lungs and pleura: Previously described 1.5 cm right lower lobe costophrenic angle nodule is again see n, currently measures 1.1 cm in size series 6 image 232. Previously described inferior right middle l obe nodule is again seen measures 7 mm in size compared to 8 mm on previous study and is essentially unchanged series 6 image 222 no new pulmonary nodule is seen. Scattered atelectasis in periphery.. N o pleural effusions or pneumothorax. Central and peripheral airways are patent. Mediastinum: Heart size is normal, without pericardial effusion. No mediastinal or hilar adenopathy . Thoracic aorta is normal in caliber and enhancement. Esophagus is normal in caliber, without hiat al hernia. Bones and chest wall: No suspicious bony lesions. Ribs and thoracic spine appear intact throughout. No axillary or supraclavicular adenopathy. The thyroid is normal in size and there are no incident al findings. Abdomen: Visualized upper abdominal solid organs appear normal in the early arterial phase of enhanc ement. IMPRESSION: 1. Subtle tiny intraluminal filling defect involving distal subsegmental branches of right lower lobe pulmonary artery filling less prominent compared to 09/03/2020 study and is suggestive of residual c hronic pulmonary emboli. No other pulmonary emboli are seen. 2. Previously described 1.5 cm right lower lobe nodule now measures 1.1 cm in size. Fairly stable 7 m m right middle lobe nodule. No new pulmonary nodule or mass is seen. Continued CT follow-up in 6-12 m onths is recommended. 3. Scattered atelectasis in bilateral lung grijalva. No pleural effusion or pneumothorax. Airway is pat ent. 4. No mediastinal or hilar lymphadenopathy. Reviewed by: Harjeet Fuller MD on 02/04/2021 1:00 PM PDT Approved by: Harjeet Fuller MD on 02/04/2021 1:00 PM PDT Station ID: [id number]
== END 2021-02-04 09:34 | disposition home or self-care (01) ==
LOC: LAB 09:33
PROVIDERS: ATTEND Internal Medicine
DX: R91.1 Solitary pulmonary nodule (principal); I26.99 Other pulmonary embolism without acute cor pulmonale
CPT/HCPCS: 36415; 71275; 82565; Q9967

== ENCOUNTER 2021-12-07 08:53 | Outpatient (CLI) | payer MEDICAID ==
[2021-12-07 12:14] LABS: BASOPHILS # (AUTO) 0.1 10^3/uL (0.0-0.1); BASOPHILS % (AUTO) 0.7 %; EOSINOPHILS # (AUTO) 0.1 10^3/uL (0.0-0.7); EOSINOPHILS % (AUTO) 0.9 %; HCT - HEMATOCRIT 45.6 % (42.0-52.0); HGB - HEMOGLOBIN 15.9 g/dL (14.0-18.0); LYMPHOCYTES # (AUTO) 1.9 10^3/uL (1.5-3.5); LYMPHOCYTES % (AUTO) 25.3 %; MEAN CORPUSCULAR HEMOGLOBIN 32.7 pg (27.0-31.0); MEAN CORPUSCULAR HGB CONC 34.9 g/dL (32.0-36.0); MEAN CORPUSCULAR VOLUME 93.8 fL (80.0-94.0); MEAN PLATELET VOLUME 10.3 fL (7.4-11.4); MONOCYTES # (AUTO) 0.7 10^3/uL (0.0-1.0); MONOCYTES % (AUTO) 8.8 %; NEUTROPHILS # (AUTO) 4.8 10^3/uL (1.5-6.6); NEUTROPHILS % (AUTO) 63.8 %; PLT - PLATELET COUNT 241 10^3/uL (130-450); RED BLOOD COUNT 4.86 10^6/uL (4.70-6.10); RED CELL DISTRIBUTION WIDTH 12.4 % (12.0-15.0); WHITE BLOOD COUNT 7.5 x10^3/uL (4.8-10.8)
[2021-12-07 12:31] LABS: ALBUMIN 4.7 g/dL (3.2-5.5); ALBUMIN/GLOBULIN RATIO 1.6 (1.0-2.2); ALKALINE PHOSPHATASE 76 IU/L (42-121); ALT ALANINE AMINOTRANSFERASE 84 IU/L (10-60); AST ASPARTATE AMINOTRANSFERASE 29 IU/L (10-42); BILIRUBIN,TOTAL 1.8 mg/dL (0.2-1.0); BUN - BLOOD UREA NITROGEN 15 mg/dL (6-20); CALCIUM 9.7 mg/dL (8.5-10.3); CARBON DIOXIDE - CO2 25 mmol/L (21-32); CHLORIDE 100 mmol/L (101-111); CHOLESTEROL 263 mg/dL; CREATININE 0.9 mg/dL (0.6-1.2); GFR - MDRD 89 (>89); GLUCOSE 119 mg/dL (70-100); HDL CHOLESTEROL 66 mg/dL; LDL CHOLESTEROL,CALCULATED 177 mg/dL; LDL/HDL RATIO 2.7 (<3.6); POTASSIUM 4.1 mmol/L (3.5-5.0); SODIUM 136 mmol/L (135-145); TOTAL PROTEIN 7.6 g/dL (6.7-8.2); TRIGLYCERIDES 99 mg/dL; URIC ACID 8.6 mg/dL (2.6-7.2); VLDL CHOLESTEROL 20 mg/dL
[2021-12-07 12:33] LABS: VALPROIC ACID (DEPAKOTE) < 10.0 ug/mL
[2021-12-07 12:35] LABS: THYROID STIMULATING HORMONE 1.49 uIU/mL (0.34-5.60)
[2021-12-07 12:46] LABS: ESTIMATED AVERAGE GLUCOSE 103 mg/dL (70-100); HEMOGLOBIN A1c% 5.2 % (4.27-6.07)
== END 2021-12-07 08:54 | disposition home or self-care (01) ==
LOC: LAB.N 08:53
PROVIDERS: ATTEND Nurse Practitioner
DX: R63.4 Abnormal weight loss (principal); R53.83 Other fatigue; F31.81 Bipolar II disorder; M10.9 Gout, unspecified
CPT/HCPCS: 36415; 80053; 80061; 80164; 80175; 81001; 82043; 82570; 82607; 83036; 83721; 84443; 84550; 85025; 87086

== ENCOUNTER 2023-07-21 12:03 | Emergency (ER) | payer MEDICAID ==
--- NOTE | 2023-07-21 14:33 | ED Physician Documentation ---
PD HPI UPPER EXT INJURY - Stated complaint Stated Complaint: RT HAND SWELLING,PX, BITE - Chief complaint Chief Complaint: Ext Problem - History obtained from History obtained from: Patient - History of Present Illness Location: Right, Hand Type of injury: Other (?bite) Where injury occurred: Home Timing - onset: Yesterday Timing - duration: Hours Timing - details: Abrupt onset, Still present Improved by: Rest Worsened by: Moving, Palpating Associated symptoms: Swelling, Discolored. No: Weakness Contributing factors: No: Anticoagulated Similar symptoms before: Has not had sx before Recently seen: Not recently seen - Additonal information Additional information: Matthew Lund is a 53-year-old male with a history of a clotting disorder who is not on anticoagulation. Yesterday he developed acute swelling to his right hand associated with some stinging pain. He took a photograph of this and the swelling has improved overnight. He shows a photograph of the hand swollen with some erythema over the dorsum of the hand. He does not recall being stung by a bee. Review of Systems Constitutional: denies: Fever Eyes: denies: Decreased vision Ears: denies: Ear pain Nose: denies: Congestion Throat: denies: Sore throat Respiratory: denies: Cough GI: denies: Vomiting PD PAST MEDICAL HISTORY - Past Medical History Cardiovascular: Hypertension, Pulmonary embolism Respiratory: None, Other Neuro: None Endocrine/Autoimmune: None GI: None : None HEENT: Chronic sinusitis Psych: Depression, Anxiety, Bipolar disorder, Panic attacks, ADD/ADHD, Post traumatic stress disorder, Claustrophobia Musculoskeletal: Gout Derm: None - Past Surgical History Past Surgical History: Yes Ortho: Rotator cuff repair, Other HEENT: Tonsil/Adenoidectomy - Present Medications Home Medications: Ambulatory Orders Medication Instructions Recorded Confirmed lamoTRIgine [LaMICtal] 200 mg PO BID 05/08/14 01/26/22 OLANZapine [Zyprexa] 30 mg PO DAILY 04/28/15 01/26/22 Divalproex Sodium [Depakote] 500 mg PO BID 01/21/16 01/26/22 Dextroamphetamine/Amphetamine 20 mg PO DAILY 09/03/20 01/26/22 [Adderall 20 mg Tablet] Rivaroxaban [Xarelto] 20 mg PO DAILY 09/03/20 01/26/22 - Allergies Allergies/Adverse Reactions: Allergies Allergy/AdvReac Type Severity Reaction Status Date / Time risperidone [From Risperdal] Allergy Severe Edema Verified 11/17/20 09:53 rofecoxib [From Vioxx] Allergy Severe rapid Verified 11/17/20 09:53 heart rate celecoxib [From Celebrex] Allergy Intermediate elevated HR Verified 11/17/20 09:53 NSAIDS (Non-Steroidal Allergy Intermediate Respiratory Verified 11/17/20 09:53 Anti-Inflamma pentosan polysulfate sodium Allergy Mild Unknown Verified 11/17/20 09:53 [From Elmiron] dicyclomine Allergy Unknown Verified 11/17/20 09:53 quetiapine [From Seroquel] Allergy Unknown Verified 11/17/20 09:53 - Social History Does the pt smoke?: Yes Smoking Status: Current every day smoker Does the pt drink ETOH?: No Does the pt have substance abuse?: Yes - Immunizations Immunizations are current?: Yes - POLST Patient has POLST: No PD ED PE NORMAL - Vitals Vital signs reviewed: Yes (normal ) - General General: Alert and oriented X 3, No acute distress, Well developed/nourished - HEENT HEENT: Atraumatic, PERRL, EOMI - Respiratory Respiratory: No respiratory distress - Derm Derm: Normal color, Warm and dry, No rash - Extremities Extremities: No deformity, Other (swelling and point tenderness to the dorsum of the right hand without lympangetic streaking. consistent with resolving bee sting. ) - Neuro Neuro: Alert and oriented X 3, labeling associate 2-12 intact, No motor deficit, No sensory deficit, Normal speech Eye Opening: To Voice Motor: Obeys Commands Verbal: Oriented GCS Score: 14 - Psych Psych: Normal mood, Normal affect Results - Vitals Vitals: Vital Signs - 24 hr 07/21/23 07/21/23 12:08 14:58 Temperature 36.6 C 36.9 C Heart Rate 100 89 Respiratory 16 16 Rate Blood Pressure 103/68 110/73 O2 Saturation 100 98 Oxygen O2 Source Room air - Rads (name of study) ultrasound RUE duplex viens. Relevant Findings:: Prelim report reviewed (from the technition no evidence of DVT in UE note from rads:Impression: No deep venous thrombosis in the visualized upper extremity nonvisualized basilic and cephalic veins), EMP independent interpretation of test PD Medical Decision Making - ED course Complexity details: reviewed old records, reviewed results, re-evaluated patient, considered differential, d/w patient ED course: 53-year-old male with acute swelling to the dorsum of the right hand looks like he was stung by a bee. The swelling has improved overnight consistent again with local reaction. The patient has a history of clotting disorder and prior pulmonary embolism. He has previously been on Xarelto and has discontinued this. He was seen by oncology and it was recommended he continue the antico agulation. For this reason we did do ultrasound of the upper extremity to rule out a deep vein thrombosis. We did not find this. I have asked the patient to follow-up with oncology to reconsider anticoagulation. The patient himself is having second thoughts and is considering restarting anticoagulation. Departure - Departure Disposition: 01 Home, Self Care Clinical Impression: Swelling of right hand Condition: Stable Instructions: ED Bite Sting Insect Local Allergic React Follow-Up: Verenice Novoa ARNP [Primary Care Provider] - RUBEN HINOJOSA MD [Provider Admit Priv/Credential] - Comments: Matthew, today it looks like the swelling you have in your hand is not related to a blood clot in your vein. This does look like it is likely a bee sting and we would expect the swelling to continue to resolve over the next 2 days. As far as anticoagulation goes my recommendation is to follow up with Dr. Hinojosa to assess your risk and consider anticoagulation. Discharge Date/Time: 07/21/23 14:58
[2023-07-21 15:02] VITALS: BP 110/73; O2SAT 98
--- NOTE | 2023-07-21 15:20 | Ultrasound Report ---
PROCEDURE: Duplex Ext Veins Right INDICATIONS: swelling to right hand hx of clotting disorder TECHNIQUE: Real-time imaging, as well as color and pulse Doppler interrogation, were performed of th e lower extremity deep veins from the inguinal ligament to the popliteal fossa. Attempted visualizati on of the calf veins was performed. COMPARISON: None. FINDINGS: The deep veins are normally compressible, and free of intraluminal thrombus. Color and pu lse Doppler demonstrate normal phasic intraluminal flow. There is normal augmentation response to di stal compression maneuver. IMPRESSION: No deep venous thrombosis of the visualized lower extremity. Nonvisualized basilic and cephalic veins Reviewed by: Gurdeep Mie MD on 07/21/2023 2:18 PM [facility] Approved by: Gurdeep Mei MD on 07/21/2023 2:18 PM [facility] Station ID: [id number]
== END 2023-07-21 14:58 | disposition home or self-care (01) ==
LOC: ED 12:03
DX: M79.89 Other specified soft tissue disorders (principal); I10 Essential (primary) hypertension; Z79.899 Other long term (current) drug therapy; F17.200 Nicotine dependence, unspecified, uncomplicated
CPT/HCPCS: 99283; 99284

== ENCOUNTER 2023-07-21 15:00 | Outpatient (CLI) | payer MEDICAID | END 2023-07-21 15:01 | disposition home or self-care (01) | LOC: LAB 15:00 | PROVIDERS: ATTEND Nurse Practitioner Psychiatric/Mental Health | DX: F31.81 Bipolar II disorder (principal); F90.2 Attention-deficit hyperactivity disorder, combined type ==

== ENCOUNTER 2023-07-22 08:00 | Outpatient (CLI) | payer MEDICAID ==
[2023-07-22 12:36] LABS: BASOPHILS # (AUTO) 0.1 10^3/uL (0.0-0.1); BASOPHILS % (AUTO) 0.7 %; EOSINOPHILS # (AUTO) 0.1 10^3/uL (0.0-0.7); HGB - HEMOGLOBIN 15.2 g/dL (14.0-18.0); LYMPHOCYTES # (AUTO) 2.8 10^3/uL (1.5-3.5); LYMPHOCYTES % (AUTO) 29.8 %; MEAN CORPUSCULAR HEMOGLOBIN 31.3 pg (27.0-31.0); MEAN CORPUSCULAR HGB CONC 33.8 g/dL (32.0-36.0); MEAN CORPUSCULAR VOLUME 92.8 fL (80.0-94.0); MEAN PLATELET VOLUME 10.2 fL (7.4-11.4); MONOCYTES # (AUTO) 0.7 10^3/uL (0.0-1.0); MONOCYTES % (AUTO) 7.8 %; NEUTROPHILS # (AUTO) 5.6 10^3/uL (1.5-6.6); NEUTROPHILS % (AUTO) 60.4 %; PLT - PLATELET COUNT 304 10^3/uL (130-450); RED BLOOD COUNT 4.85 10^6/uL (4.70-6.10); RED CELL DISTRIBUTION WIDTH 12.1 % (12.0-15.0); WHITE BLOOD COUNT 9.2 x10^3/uL (4.8-10.8)
[2023-07-22 13:35] LABS: ALBUMIN 4.3 g/dL (3.2-5.5); ALBUMIN/GLOBULIN RATIO 2.4 (1.0-2.2); ALKALINE PHOSPHATASE 80 IU/L (42-121); ALT ALANINE AMINOTRANSFERASE 16 IU/L (10-60); AST ASPARTATE AMINOTRANSFERASE 20 IU/L (10-42); BILIRUBIN,TOTAL 0.6 mg/dL (0.2-1.0); BUN - BLOOD UREA NITROGEN 23 mg/dL (6-20); CALCIUM 8.8 mg/dL (8.5-10.3); CARBON DIOXIDE - CO2 26 mmol/L (21-32); CHLORIDE 106 mmol/L (101-111); CHOL/HDL RATIO 2.7 (<5.0); CHOLESTEROL 152 mg/dL; CREATININE 1.1 mg/dL (0.6-1.3); GFR - MDRD 70 (>89); GLUCOSE 103 mg/dL (74-104); HDL CHOLESTEROL 56 mg/dL; LDL CHOLESTEROL,CALCULATED 71 mg/dL; LDL/HDL RATIO 1.3 (<3.6); POTASSIUM 3.7 mmol/L (3.5-4.5); SODIUM 140 mmol/L (135-145); TOTAL PROTEIN 6.1 g/dL (6.4-8.9); TRIGLYCERIDES 126 mg/dL (48-352); VALPROIC ACID (DEPAKOTE) 63.7 ug/mL; VLDL CHOLESTEROL 25 mg/dL
[2023-07-23 09:00] LABS: ESTIMATED AVERAGE GLUCOSE 105 mg/dL (70-100); HEMOGLOBIN A1c% 5.3 % (4.27-6.07)
== END 2023-07-22 23:59 | disposition home or self-care (01) ==
LOC: LAB 08:00
PROVIDERS: ATTEND Nurse Practitioner Psychiatric/Mental Health
DX: F31.81 Bipolar II disorder (principal); F90.2 Attention-deficit hyperactivity disorder, combined type
CPT/HCPCS: 36415; 80053; 80061; 80164; 82306; 83036; 83721; 85025

== ENCOUNTER 2023-07-24 03:22 | Outpatient (CLI) | payer MEDICAID | END 2023-07-24 03:23 | disposition critical access hospital (66) | LOC: EMS 03:22 | DX: R45.851 Suicidal ideations (principal); R45.850 Homicidal ideations | CPT/HCPCS: A0425; A0429; A0999 ==

== ENCOUNTER 2023-07-24 03:39 | Emergency (ER) | payer MEDICAID ==
--- NOTE | 2023-07-24 04:27 | ED Physician Documentation ---
PD HPI MHE - Stated complaint Stated Complaint: MHE - Chief complaint Chief Complaint: MHE - History obtained from History obtained from: Patient, EMS - Additional information Additional information: BIBA. HPI is from EMS as well as patient. Patient is scattered and rambling throughout my attempts to ascertain HPI from him. EMS says that they were contacted by law enforcement to assess the patient. It is not clear why or how long enforcement became involved with this patient tonight. EMS indicates that the patient said he called a crisis hotline tonight but when they tried to gather more information from the patient he suddenly became angry and insisted he didn't want to answer any more of their questions but just wanted to speak to a social work instructor once he gets to the hospital. My attempts to gather HPI from the patient, he offers a long, rambling, tangential narrative that is confusing and, at times, incoherent. He is quite insistent on not being interrupted and speaks for several minutes with poverty of content in narrative. He does seem to be indicating to me that he has missed doses of his prescribed medications due to his medications being at his mother's house and that he is no longer staying there. It is unclear which meds, how many doses/days he has missed. Review of Systems Unable to obtain: Other (unable to obtain ROS) PD PAST MEDICAL HISTORY - Past Medical History Cardiovascular: Hypertension, Pulmonary embolism Respiratory: None, Other Neuro: None Endocrine/Autoimmune: None GI: None : None HEENT: Chronic sinusitis Psych: Depression, Anxiety, Bipolar disorder, Panic attacks, ADD/ADHD, Post traumatic stress disorder, Claustrophobia Musculoskeletal: Gout Derm: None - Past Surgical History Past Surgical History: Yes Ortho: Rotator cuff repair, Other HEENT: Tonsil/Adenoidectomy - Present Medications Home Medications: Ambulatory Orders Medication Instructions Recorded Confirmed lamoTRIgine [LaMICtal] 200 mg PO BID 05/08/14 07/24/23 OLANZapine [Zyprexa] 30 mg PO DAILY 04/28/15 07/24/23 Divalproex Sodium [Depakote] 500 mg PO BID 01/21/16 07/24/23 Buspirone HCl 15 mg PO 07/24/23 07/24/23 Guanfacine HCl [Intuniv] 4 mg PO DAILY 07/24/23 07/24/23 Lisinopril [Zestril] 10 mg PO DAILY 07/24/23 07/24/23 allopurinoL [Zyloprim] 100 mg PO DAILY 07/24/23 07/24/23 - Allergies Allergies/Adverse Reactions: Allergies Allergy/AdvReac Type Severity Reaction Status Date / Time risperidone [From Risperdal] Allergy Severe Edema Verified 07/24/23 05:46 rofecoxib [From Vioxx] Allergy Severe rapid Verified 07/24/23 05:46 heart rate celecoxib [From Celebrex] Allergy Intermediate elevated HR Verified 07/24/23 05:46 NSAIDS (Non-Steroidal Allergy Intermediate Respiratory Verified 07/24/23 05:46 Anti-Inflamma pentosan polysulfate sodium Allergy Mild Unknown Verified 07/24/23 05:46 [From Elmiron] dicyclomine Allergy Unknown Verified 07/24/23 05:46 quetiapine [From Seroquel] Allergy Unknown Verified 07/24/23 05:46 - Social History Does the pt smoke?: Yes Smoking Status: Current every day smoker Does the pt drink ETOH?: No Does the pt have substance abuse?: Yes - Immunizations Immunizations are current?: Yes - POLST Patient has POLST: No PD ED PE NORMAL - Vitals Vital signs reviewed: Yes - General General: Alert and oriented X 3, Well developed/nourished, Other (initially calm but becomes increasingly agitated as he talks; labile affect, crying at times then will suddenly seem upbeat) - HEENT HEENT: PERRL - Cardiac Cardiac: RRR, No murmur - Respiratory Respiratory: No respiratory distress, Clear bilaterally - Extremities Extremities: Other (mild edema of right hand with faint and poorly-marginated erythema. Nontender, no fluctuance. FROM fingers, wrist without pain. Not hot to touch) PD ED PE EXPANDED - Psych Psych: Tearful, Anxious, Agitated, Pressured speech, Flight of ideas Results - Vitals Vitals: Vital Signs - 24 hr 07/24/23 07/24/23 07/24/23 08:36 10:05 12:01 Temperature 36.5 C Heart Rate 79 64 Respiratory 20 13 Rate Blood Pressure 120/82 H 120/82 H O2 Saturation 99 98 07/24/23 07/25/23 14:24 01:56 Temperature 37 C Heart Rate 70 71 Respiratory 20 17 Rate Blood Pressure 126/70 O2 Saturation 98 96 Oxygen O2 Source Room air - Labs Labs: Laboratory Tests 07/24/23 07/24/23 07/24/23 10:29 10:29 10:29 WBC 9.1 RBC 4.92 Hgb 15.4 Hct 44.6 MCV 90.7 MCH 31.3 H MCHC 34.5 RDW 12.1 Plt Count 300 MPV 9.9 Neut # (Auto) 5.0 Lymph # (Auto) 3.0 [place] # (Auto) 0.8 Eos # (Auto) 0.2 Baso # (Auto) 0.1 Absolute Nucleated RBC 0.00 Nucleated RBC % 0.0 Sodium 139 Potassium 3.1 L Chloride 105 Carbon Dioxide 25 Anion Gap 9.0 BUN 15 Creatinine 0.8 Estimated GFR (MDRD) 102 Glucose 100 Calcium 8.9 Magnesium 1.8 Total Bilirubin 1.4 H AST 30 ALT 22 Alkaline Phosphatase 73 Total Creatine Kinase 673 H Total Protein 6.4 Albumin 4.3 Globulin 2.1 Albumin/Globulin Ratio 2.0 Lipase 57 TSH 1.92 Urine Opiates Screen Ur Oxycodone Screen Urine Methadone Screen Ur Propoxyphene Screen Ur Barbiturates Screen Ur Tricyclics Screen Ur Phencyclidine Scrn Ur Amphetamine Screen U Methamphetamines Scrn U Benzodiazepines Scrn Urine Cocaine Screen U Cannabinoids Screen Ethyl Alcohol < 10.0 SARS-CoV-2 (PCR) 07/24/23 07/24/23 11:52 14:04 WBC RBC Hgb Hct MCV MCH MCHC RDW Plt Count MPV Neut # (Auto) Lymph # (Auto) [place] # (Auto) Eos # (Auto) Baso # (Auto) Absolute Nucleated RBC Nucleated RBC % Sodium Potassium Chloride Carbon Dioxide Anion Gap BUN Creatinine Estimated GFR (MDRD) Glucose Calcium Magnesium Total Bilirubin AST ALT Alkaline Phosphatase Total Creatine Kinase Total Protein Albumin Globulin Albumin/Globulin Ratio Lipase TSH Urine Opiates Screen NEGATIVE Ur Oxycodone Screen NEGATIVE Urine Methadone Screen NEGATIVE Ur Propoxyphene Screen NEGATIVE Ur Barbiturates Screen NEGATIVE Ur Tricyclics Screen NEGATIVE Ur Phencyclidine Scrn NEGATIVE Ur Amphetamine Screen POSITIVE H U Methamphetamines Scrn POSITIVE H U Benzodiazepines Scrn NEGATIVE Urine Cocaine Screen NEGATIVE U Cannabinoids Screen POSITIVE H Ethyl Alcohol SARS-CoV-2 (PCR) NOT DETECTED PD Medical Decision Making - ED course Complexity details: reviewed results (I reviewed results of outpatient labs (see below)), considered differential, d/w patient ED course: Patient exhibits labile affect. He is unable to provide a coherent history of present illness for reasons noted above in the HPI section of this note. I do note on [facility] records recent outpatient prescription fills for multiple medications : buspirone, allopurinol, olanzapine, mirtazapine, lisinopril, divalproex, gaunfacine. His medications were just filled a few days ago (07/18/23), but it is unclear if patient is compliant with his medications. I also note results of several outpatient blood test that were done just 2 days ago. These blood tests include CBC, CMP, hemoglobin A1c, lipid panel, vitamin D 25 level, and valproic acid level. There are no concerning nor contributory findings on these tests with exception of a therapeutic valproic acid level (63.7) which would suggest he has been taking this medication recently. I offered patient telepsychiatric consult. He again gives a confusing and tangential response, leaving it unclear as to whether he is interested in this service. He does indicate in his response that he has been to [facility] in the past; although he repeatedly returns to wanting to be "stabilized", he expresses frustration with feeling like "they just give me drugs like thorazine" when he has been inpatient for mental health in the past. He is similarly u nclear in his response when I offer to have a social work instructor speak with him; he neither accepts nor rejects the offer. I recommended a dose of olanzapine now to help him with filtering what are clearly overwhelming and scattered thoughts. He is agreeable to this. He is given 10mg TL zyprexa. Care of patient is turned over to oncoming ED physician (Dr. Bernard) at end of my shift. Plan is to have a social work instructor speak with him; hopefully the zyprexa will result in a more stable affect and more clear/helpful HPI. Departure - Departure Disposition: 65 Psych Hosp/Unit DC/Xfer Clinical Impression: Psychosis Condition: Stable Forms: PCP List
[2023-07-24] MEDS: OLANZapine ODT 5 MG TABLET TL STA (05:39)
[2023-07-24 10:33] LABS: BASOPHILS # (AUTO) 0.1 10^3/uL (0.0-0.1); BASOPHILS % (AUTO) 0.7 %; EOSINOPHILS # (AUTO) 0.2 10^3/uL (0.0-0.7); EOSINOPHILS % (AUTO) 1.7 %; HCT - HEMATOCRIT 44.6 % (42.0-52.0); HGB - HEMOGLOBIN 15.4 g/dL (14.0-18.0); LYMPHOCYTES % (AUTO) 32.9 %; MEAN CORPUSCULAR HEMOGLOBIN 31.3 pg (27.0-31.0); MEAN CORPUSCULAR HGB CONC 34.5 g/dL (32.0-36.0); MEAN CORPUSCULAR VOLUME 90.7 fL (80.0-94.0); MEAN PLATELET VOLUME 9.9 fL (7.4-11.4); MONOCYTES # (AUTO) 0.8 10^3/uL (0.0-1.0); MONOCYTES % (AUTO) 9.1 %; NEUTROPHILS % (AUTO) 55.5 %; PLT - PLATELET COUNT 300 10^3/uL (130-450); RED BLOOD COUNT 4.92 10^6/uL (4.70-6.10); RED CELL DISTRIBUTION WIDTH 12.1 % (12.0-15.0); WHITE BLOOD COUNT 9.1 x10^3/uL (4.8-10.8)
[2023-07-24 10:47] LABS: ALBUMIN 4.3 g/dL (3.2-5.5); ALKALINE PHOSPHATASE 73 IU/L (42-121); ALT ALANINE AMINOTRANSFERASE 22 IU/L (10-60); AST ASPARTATE AMINOTRANSFERASE 30 IU/L (10-42); BILIRUBIN,TOTAL 1.4 mg/dL (0.2-1.0); BUN - BLOOD UREA NITROGEN 15 mg/dL (6-20); CALCIUM 8.9 mg/dL (8.5-10.3); CARBON DIOXIDE - CO2 25 mmol/L (21-32); CHLORIDE 105 mmol/L (101-111); CREATININE 0.8 mg/dL (0.6-1.3); ETOH - ETHANOL < 10.0 mg/dL; GFR - MDRD 102 (>89); GLUCOSE 100 mg/dL (74-104); LIPASE 57 U/L (11-82); POTASSIUM 3.1 mmol/L (3.5-4.5); SODIUM 139 mmol/L (135-145); TOTAL PROTEIN 6.4 g/dL (6.4-8.9)
[2023-07-24 14:13] LABS: MUDS CUTOFF CONCENTRATIONS CUTOFF CONC BELOW:
[2023-07-24 14:24] LABS: AMPHETAMINE SCREEN,URINE POSITIVE (NEGATIVE); BARBITURATE SCREEN,UR NEGATIVE (NEGATIVE); BENZODIAZEPINES SCREEN, URINE NEGATIVE (NEGATIVE); COCAINE SCREEN URINE NEGATIVE (NEGATIVE); METHADONE SCREEN, URINE NEGATIVE (NEGATIVE); METHAMPHETAMINES SCREEN, URINE POSITIVE (NEGATIVE); OPIATE SCREEN, URINE NEGATIVE (NEGATIVE); OXYCODONE SCREEN, URINE NEGATIVE (NEGATIVE); PROPOXYPHENE SCREEN, URINE NEGATIVE (NEGATIVE); THC CANNABINOID SCREEN, URINE POSITIVE (NEGATIVE); TRICYCLIC ANTIDEPRESSANT,URINE NEGATIVE (NEGATIVE)
[2023-07-24 14:53] LABS: MAGNESIUM 1.8 mg/dL (1.7-2.3)
[2023-07-24 15:07] LABS: THYROID STIMULATING HORMONE 1.92 uIU/mL (0.34-5.60)
--- NOTE | 2023-07-24 19:13 | ED Physician Documentation ---
ED Addendum - Addendum Addendum: 07/24/23 19:11 Patient was signed out to me at change of shift by Dr. Huggins, pending social work evaluation after presenting with some disorganization and question of suicidal or homicidal ideation. The patient had not expressed any suicidal or homicidal thoughts here but EMS had reported that they thought he might have said something to that effect while in their custody. The patient had been given Zyprexa and was resting comfortably in the ED. He remained calm throughout his stay over the course of my shift. Social work was able to talk to him and the patient at this point in time is voluntary to go to what ever facility will accept him. However, he has been discovered to be a level 2 sex offender and so his options are somewhat limited. At this point in time, social media sr strategy manager feels that the patient may be kept in voluntary status and that if he wishes to leave the emergency department, he is free to determine that he would like to go. At this point in time, [facility] is considering the patient but will not have beds until tomorrow so for now, as long as the patient is willing to do so, he will board in the emergency department overnight, pending potential availability of beds tomorrow. Patient has been signed out to Dr. Huggins at change of shift, pending final disposition.
[2023-07-25] MEDS: POTASSIUM CHLORIDE 20 MEQ TABLET PO STA (10:39)
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
[2023-07-25] MEDS: busPIRone 5 MG TABLET PO STA (13:58)
[2023-07-25] MEDS: DIVALPROEX DR 125 MG TABLET PO STA (13:58)
[2023-07-25] MEDS: OLANZapine ODT 5 MG TABLET TL ONE (13:59)
[2023-07-25] MEDS: MIRTAZAPINE 15 MG TABLET PO SCH (19:28)
--- NOTE | 2023-07-25 19:30 | ED Physician Documentation ---
ED Addendum - Addendum Addendum: 07/25/23 19:29 It had originally been thought that the patient would be able to be discharged, as he had expressed a willingness to get back on his meds and follow-up with his outpatient mental health provider. However, after receiving doses of his meds here in the ED, the patient was presented with discharge papers and apparently had a change of heart as he threw the discharge papers on the floor and stated that he if he got "kicked out", he would just run out into traffic. At this point, we felt that we could not discharge him and had to In fact keep in the emergency department. At this point in time, the patient will be signed off at change of shift to Dr. Nunez, pending final disposition and reevaluation by licensed social worker in the morning. At this point in time, the patient's options for mental health inpatient treatment are exceedingly limited, due to his sex offender status.
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
[2023-07-26 10:31] VITALS: BP 129/77; O2SAT 99
--- NOTE | 2023-07-26 11:27 | ED Physician Documentation ---
ED Addendum - Addendum Addendum: 07/26/23 11:27 Telepsychiatry consult was ordered, they recommend continuing current m edications and continue to look for inpatient placement. Patient is voluntary. Social work is continuing to look for placement.
--- NOTE | 2023-07-26 14:32 | ED Physician Documentation ---
ED Addendum - Addendum Addendum: 07/26/23 14:31 Patient has been calm and cooperative in the emergency department. [facility] accepts the patient. COBRA forms completed. Patient will be transferred for inpatient psychiatric care. Dr. Meza accepts. Departure - Departure Disposition: 65 Psych Hosp/Unit DC/Xfer Clinical Impression: Psychosis Qualifiers: Psychosis type: unspecified psychosis type Qualified Code(s): F29 - Unspecified psychosis not due to a substance or known physiological condition Condition: Stable Prescriptions: Buspirone HCl 15 mg PO BID #60 tablet Divalproex ER [Depakote ER] 500 mg PO DAILY #60 tablet Guanfacine HCl [Intuniv] 4 mg PO DAILY #30 tab OLANZapine [Olanzapine] 15 mg PO HS #60 tablet Mirtazapine [Remeron] 15 mg PO HS #30 tablet Forms: PCP List
== END 2023-07-26 16:18 ==
LOC: EDUNIT# → ED 03:39
DX: F29 Unspecified psychosis not due to a substance or known physiological condition (principal); F31.9 Bipolar disorder, unspecified; F41.9 Anxiety disorder, unspecified; I10 Essential (primary) hypertension; F17.200 Nicotine dependence, unspecified, uncomplicated; Z20.822 Contact with and (suspected) exposure to COVID-19; Z79.899 Other long term (current) drug therapy
CPT/HCPCS: 36415; 80053; 80306; 80320; 82550; 83690; 83735; 84443; 85025; 87635; 90834; 93005; 99284; 99285; A9270; Q3014

== ENCOUNTER 2023-08-20 01:47 | Outpatient (CLI) | payer MEDICAID | END 2023-08-20 01:48 | disposition critical access hospital (66) | LOC: EMS 01:47 | DX: R10.31 Right lower quadrant pain (principal); R05.9 Cough, unspecified | CPT/HCPCS: A0425; A0429; A0999 ==

== ENCOUNTER 2023-08-20 01:55 | Emergency (ER) | payer MEDICAID ==
--- NOTE | 2023-08-20 02:10 | ED Physician Documentation ---
PD HPI ABD PAIN - Stated complaint Stated Complaint: ABD PAIN - Chief complaint Chief Complaint: Abd Pain - History obtained from History obtained from: Patient - Additional information Additional information: 53-year-old male with history of amphetamine abuse presents by EMS for right- sided abdominal pain. History is difficult to obtain as the patient is a very poor historian and spends most of his time talking about his sinuses and going to the walk-in clinic for gout earlier this week. Denies hx of abdominal pain Review of Systems Constitutional: denies: Fever, Chills Cardiac: denies: Chest pain / pressure, Palpitations, Calf pain Respiratory: denies: Dyspnea, Cough, Wheezing GI: reports: Abdominal Pain. denies: Nausea, Vomiting, Constipation PD PAST MEDICAL HISTORY - Past Medical History Past Medical History: Yes Cardiovascular: Hypertension, Pulmonary embolism Respiratory: None, Other Neuro: None Endocrine/Autoimmune: None GI: None : None HEENT: Chronic sinusitis Psych: Depression, Anxiety, Bipolar disorder, Panic attacks, ADD/ADHD, Post traumatic stress disorder, Claustrophobia Musculoskeletal: Gout Derm: None - Past Surgical History Past Surgical History: Yes Ortho: Rotator cuff repair, Other HEENT: Tonsil/Adenoidectomy - Present Medications Home Medications: Ambulatory Orders Medication Instructions Recorded Confirmed lamoTRIgine [LaMICtal] 200 mg PO BID 05/08/14 08/20/23 OLANZapine [Zyprexa] 30 mg PO DAILY 04/28/15 08/20/23 Divalproex Sodium [Depakote] 500 mg PO BID 01/21/16 08/20/23 Guanfacine HCl [Intuniv] 4 mg PO DAILY 07/24/23 08/20/23 Lisinopril [Zestril] 10 mg PO DAILY 07/24/23 08/20/23 allopurinoL [Zyloprim] 100 mg PO DAILY 07/24/23 08/20/23 Buspirone HCl 15 mg PO BID #60 tablet 07/25/23 08/20/23 Guanfacine HCl [Intuniv] 4 mg PO DAILY #30 tab 07/25/23 08/20/23 OLANZapine [Olanzapine] 15 mg PO HS #60 tablet 07/25/23 - Allergies Allergies/Adverse Reactions: Allergies Allergy/AdvReac Type Severity Reaction Status Date / Time risperidone [From Risperdal] Allergy Severe Edema Verified 08/20/23 02:06 rofecoxib [From Vioxx] Allergy Severe rapid Verified 08/20/23 02:06 heart rate celecoxib [From Celebrex] Allergy Intermediate elevated HR Verified 08/20/23 02:06 NSAIDS (Non-Steroidal Allergy Intermediate Respiratory Verified 08/20/23 02:06 Anti-Inflamma pentosan polysulfate sodium Allergy Mild Unknown Verified 08/20/23 02:06 [From Elmiron] dicyclomine Allergy Unknown Verified 08/20/23 02:06 quetiapine [From Seroquel] Allergy Unknown Verified 08/20/23 02:06 - Social History Does the pt smoke?: Yes Smoking Status: Current every day smoker Does the pt drink ETOH?: No Does the pt have substance abuse?: Yes Substance Use and Type: Marijuana - Immunizations Immunizations are current?: Yes - POLST Patient has POLST: No PD ED PE NORMAL - Vitals Vital signs reviewed: Yes - General General: Alert and oriented X 3, No acute distress - HEENT HEENT: Atraumatic - Cardiac Cardiac: RRR, Strong equal pulses - Abdomen Abdomen: Soft, Non distended, Other (Right lower quadrant tenderness to deep palpation without rebound or guarding) - Derm Derm: Normal color, Warm and dry, No rash - Extremities Extremities: No deformity, No tenderness to palpate, Normal ROM s pain - Neuro Neuro: Alert and oriented X 3, spool hauler 2-12 intact, No motor deficit, Normal speech Results - Vitals Vitals: Vital Signs - 24 hr 08/20/23 08/20/23 08/20/23 01:55 02:02 03:56 Temperature 37.3 C 37.8 C Heart Rate 101 H 100 93 Respiratory 18 16 Rate Blood Pressure 156/89 H 156/95 H 132/82 H O2 Saturation 99 100 100 08/20/23 05:00 Temperature Heart Rate 98 Respiratory 16 Rate Blood Pressure 145/89 H O2 Saturation 98 Oxygen O2 Source Room air - Labs Labs: Laboratory Tests 08/20/23 08/20/23 08/20/23 02:14 02:14 03:23 WBC 10.6 RBC 4.46 L Hgb 13.9 L Hct 40.4 L MCV 90.6 MCH 31.2 H MCHC 34.4 RDW 12.1 Plt Count 336 MPV 9.4 Neut # (Auto) 7.8 H Lymph # (Auto) 1.3 L Early # (Auto) 1.3 H Eos # (Auto) 0.0 Baso # (Auto) 0.1 Absolute Nucleated RBC 0.00 Nucleated RBC % 0.0 Sodium 132 L Potassium 3.8 Chloride 100 L Carbon Dioxide 24 Anion Gap 8.0 BUN 13 Creatinine 0.8 Estimated GFR (MDRD) 102 Glucose 106 H Calcium 9.0 Total Bilirubin 0.7 AST 19 ALT 31 Alkaline Phosphatase 99 Total Protein 6.9 Albumin 3.8 Globulin 3.1 Albumin/Globulin Ratio 1.2 Lipase 12 Urine Color YELLOW Urine Clarity CLEAR Urine pH 7.0 Ur Specific [place] 1.020 Urine Protein 30 H Urine Glucose (UA) NEGATIVE Urine Ketones NEGATIVE Urine Occult Blood NEGATIVE Urine Nitrite NEGATIVE Urine Bilirubin NEGATIVE Urine Urobilinogen 0.2 (NORMAL) Ur Leukocyte Esterase NEGATIVE Urine RBC 0-5 Urine WBC 0-3 Ur Squamous Epith Cells FEW Squamous Urine Bacteria Rare Ur Microscopic Review INDICATED Urine Culture Comments NOT INDICATED PD Medical Decision Making - ED course Complexity details: reviewed old records, reviewed results, re-evaluated patient, considered differential, d/w patient ED course: Nontoxic-appearing patient with right upper quadrant pain. Abdomen is softly does have tenderness in the right upper quadrant. Still has gallbladder. Will order labs and CT imaging. O2 work is unremarkable. CT imaging shows no acute pathology, no explanation f or patient's symptoms. Patient is up and ambulatory, requesting water to drink. Patient informed of results, recommended decreasing fat in diet and following up with primary care as needed. Departure - Departure Disposition: 01 Home, Self Care Clinical Impression: Abdominal pain Qualifiers: Abdominal location: right upper quadrant Qualified Code(s): R10.11 - Right upper quadrant pain Condition: Stable Instructions: Abdominal Pain Forms: PCP List
[2023-08-20 02:40] LABS: BASOPHILS # (AUTO) 0.1 10^3/uL (0.0-0.1); BASOPHILS % (AUTO) 0.9 %; EOSINOPHILS % (AUTO) 0.4 %; HCT - HEMATOCRIT 40.4 % (42.0-52.0); HGB - HEMOGLOBIN 13.9 g/dL (14.0-18.0); LYMPHOCYTES # (AUTO) 1.3 10^3/uL (1.5-3.5); LYMPHOCYTES % (AUTO) 12.5 %; MEAN CORPUSCULAR HEMOGLOBIN 31.2 pg (27.0-31.0); MEAN CORPUSCULAR HGB CONC 34.4 g/dL (32.0-36.0); MEAN CORPUSCULAR VOLUME 90.6 fL (80.0-94.0); MEAN PLATELET VOLUME 9.4 fL (7.4-11.4); MONOCYTES # (AUTO) 1.3 10^3/uL (0.0-1.0); MONOCYTES % (AUTO) 12.1 %; NEUTROPHILS # (AUTO) 7.8 10^3/uL (1.5-6.6); NEUTROPHILS % (AUTO) 73.4 %; PLT - PLATELET COUNT 336 10^3/uL (130-450); RED BLOOD COUNT 4.46 10^6/uL (4.70-6.10); RED CELL DISTRIBUTION WIDTH 12.1 % (12.0-15.0); WHITE BLOOD COUNT 10.6 x10^3/uL (4.8-10.8)
[2023-08-20 03:43] LABS: ALBUMIN 3.8 g/dL (3.2-5.5); ALBUMIN/GLOBULIN RATIO 1.2 (1.0-2.2); BILIRUBIN,TOTAL 0.7 mg/dL (0.2-1.0); CREATININE 0.8 mg/dL (0.6-1.3); POTASSIUM 3.8 mmol/L (3.5-4.5); TOTAL PROTEIN 6.9 g/dL (6.4-8.9)
[2023-08-20 04:02] LABS: BILIRUBIN,URINE NEGATIVE (NEGATIVE); GLUCOSE, URINE (UA) NEGATIVE (NEGATIVE); KETONES,URINE (UA) NEGATIVE (NEGATIVE); LEUKOCYTE ESTERASE, URINE NEGATIVE (NEGATIVE); NITRITE,URINE NEGATIVE (NEGATIVE); OCCULT BLOOD,URINE NEGATIVE (NEGATIVE); PROTEIN,URINE 30 mg/dL (NEGATIVE); UROBILINOGEN,URINE 0.2 (NORMAL) E.U./dL (NORMAL)
[2023-08-20 04:08] LABS: CLARITY,URINE CLEAR (CLEAR)
[2023-08-20 04:18] LABS: BACTERIA,URINE Rare /HPF (None Seen); RBC,URINE 0-5 /HPF (0-5); SQUAMOUS EPITHELIAL CELL,UR FEW Squamous (<= Few); WBC,URINE 0-3 /HPF (0-3)
[2023-08-20] MEDS ORDERED: iohexoL-300 100 ML VIAL IVP ONE (04:24)
[2023-08-20 05:30] VITALS: BP 145/89; O2SAT 98
--- NOTE | 2023-08-20 10:05 | CT Report ---
PROCEDURE: ABDOMEN/PELVIS W INDICATIONS: RUQ ABD PAIN CONTRAST: 100 ML OMNI 300 TECHNIQUE: After the administration of IV contrast, 5 mm thick sections acquired from the diaphragms to the symp hysis. 5 mm thick coronal and sagittal reformats were acquired. For radiation dose reduction, the f ollowing was used: automated exposure control, adjustment of mA and/or kV according to patient size. COMPARISON: CT abdomen and pelvis, 03/30/2014 FINDINGS: Image quality: Excellent. Lung bases and heart: There is right lower lobe scar and atelectasis. Small hiatal hernia. Liver: There is a 1.1 cm enhancing nodule in the posterior aspect of the posterior medial right hepat ic lobe (series 2 image 14). On the comparison CT dated 03/30/2014, a similar sized hypodense lesion i s seen with subtle nodular enhancement in the area, compatible with a hepatic hemangioma. Gallbladder and biliary tree: Normal gallbladder. No biliary dilation. Spleen: No splenomegaly. Pancreas: No pancreatic ductal dilation. Adrenals: No adrenal nodule. Kidneys and ureters: Prominent cortical scars are seen in the superior pole of the right kidney. Ther e is also a small cortical scar in the superior pole left kidney. Kidneys enhance normally and symmet rically. No stones or hydronephrosis. No renal cystic lesion which requires follow up. No solid mass. Bowel and peritoneum: No bowel distension. No pathologic free fluid. There is a large amount of stool in colon. Lymph nodes: No central or retroperitoneal adenopathy. Vessels: No infrarenal aortic aneurysm. PELVIS Reproductive organs: Unremarkable. Bladder: No abnormal wall thickening, accounting for underdistension. Pelvic lymph nodes: No pelvic adenopathy by size criteria. Bones: No aggressive osseous abnormality. Other: No significant ventral or inguinal hernia. IMPRESSION: 1. No acute abnormality in abdomen or pelvis. 2. Bilateral renal cortical scars. No hydronephrosis. 3. A large amount of stool in colon. Findings are concordant with preliminary interpretation provided by [facility]. Reviewed by: Anisha Abreu MD on 08/20/2023 10:03 AM [facility] Approved by: Anisha Abreu MD on 08/20/2023 10:03 AM PST Station ID: [id number]
== END 2023-08-20 05:49 | disposition home or self-care (01) ==
LOC: EDUNIT# → ED 01:55
DX: R10.11 Right upper quadrant pain (principal); I10 Essential (primary) hypertension; F17.200 Nicotine dependence, unspecified, uncomplicated
CPT/HCPCS: 36415; 74177; 80053; 81001; 83690; 85025; 99283; 99284; Q9967; 81003; 87086

== ENCOUNTER 2023-11-01 21:33 | Outpatient (CLI) | payer MEDICAID | END 2023-11-01 21:34 | disposition critical access hospital (66) | LOC: EMS 21:33 | DX: S01.81XA Laceration without foreign body of other part of head, initial encounter (principal); M25.561 Pain in right knee; M25.562 Pain in left knee; M79.642 Pain in left hand; M79.641 Pain in right hand; W01.0XXA Fall on same level from slipping, tripping and stumbling without subsequent striking against object, initial encounter; Y93.01 Activity, walking, marching and hiking; Y92.480 Sidewalk as the place of occurrence of the external cause | CPT/HCPCS: A0425; A0429 ==

== ENCOUNTER 2023-11-01 21:49 | Emergency (ER) | payer MEDICAID ==
--- NOTE | 2023-11-01 22:19 | ED Physician Documentation ---
History of Present Illness - Stated complaint Stated Complaint: GLF, FOREHEAD LAC, BILAT KNEE PAIN - Chief complaint Chief Complaint: Neuro - History obtained from History obtained from: Patient, EMS - Additonal information Additional information: 53-year-old man presents as a modified trauma after fall from standing, hitting his forehead on Eliquis. Also with injury to bilateral hands and knees. Patient noncompliant with history, attempting to leave upon arrival. PD PAST MEDICAL HISTORY - Past Medical History Past Medical History: Yes Cardiovascular: Hypertension, Pulmonary embolism Respiratory: None, Other Neuro: None Endocrine/Autoimmune: None GI: None : None HEENT: Chronic sinusitis Psych: Depression, Anxiety, Bipolar disorder, Panic attacks, ADD/ADHD, Post traumatic stress disorder, Claustrophobia Musculoskeletal: Gout Derm: None - Past Surgical History Past Surgical History: Yes Ortho: Rotator cuff repair, Other HEENT: Tonsil/Adenoidectomy - Present Medications Home Medications: Ambulatory Orders Medication Instructions Recorded Confirmed lamoTRIgine [LaMICtal] 200 mg PO BID 05/08/14 08/20/23 OLANZapine [Zyprexa] 30 mg PO DAILY 04/28/15 08/20/23 Divalproex Sodium [Depakote] 500 mg PO BID 01/21/16 08/20/23 Guanfacine HCl [Intuniv] 4 mg PO DAILY 07/24/23 08/20/23 Lisinopril [Zestril] 10 mg PO DAILY 07/24/23 08/20/23 allopurinoL [Zyloprim] 100 mg PO DAILY 07/24/23 08/20/23 Buspirone HCl 15 mg PO BID #60 tablet 07/25/23 08/20/23 Guanfacine HCl [Intuniv] 4 mg PO DAILY #30 tab 07/25/23 08/20/23 OLANZapine [Olanzapine] 15 mg PO HS #60 tablet 07/25/23 - Allergies Allergies/Adverse Reactions: Allergies Allergy/AdvReac Type Severity Reaction Status Date / Time risperidone [From Risperdal] Allergy Severe Edema Verified 11/01/23 22:31 rofecoxib [From Vioxx] Allergy Severe rapid Verified 11/01/23 22:31 heart rate celecoxib [From Celebrex] Allergy Intermediate elevated HR Verified 11/01/23 22:31 NSAIDS (Non-Steroidal Allergy Intermediate Respiratory Verified 11/01/23 22:31 Anti-Inflamma pentosan polysulfate sodium Allergy Mild Unknown Verified 11/01/23 22:31 [From Elmiron] dicyclomine Allergy Unknown Verified 11/01/23 22:31 quetiapine [From Seroquel] Allergy Unknown Verified 11/01/23 22:31 - Social History Does the pt smoke?: Yes Smoking Status: Current every day smoker Does the pt drink ETOH?: No Does the pt have substance abuse?: Yes - Immunizations Immunizations are current?: Yes - POLST Patient has POLST: No PD ED PE NORMAL - Vitals Vital signs reviewed: Yes - General General: Alert and oriented X 3, Other (disheveled appearing with dried blood to forehead) - HEENT HEENT: PERRL, EOMI, Moist mucous membranes, Pharynx benign, Other (abrasion to midforehead with dried blood) - Neck Neck: No bony TTP, Other (refused c collar. ) - Cardiac Cardiac: RRR - Respiratory Respiratory: No respiratory distress, Clear bilaterally - Abdomen Abdomen: Non tender, Non distended - Derm Derm: Normal color, Warm and dry - Extremities Extremities: Other (BL knee ttp. FROM. CSM intact BL LE) - Neuro Neuro: Alert and oriented X 3 Eye Opening: Spontaneous Motor: Obeys Commands Verbal: Oriented GCS Score: 15 - Psych Psych: Other (belligerent affect) Results - Vitals Vitals: Vital Signs - 24 hr 11/01/23 11/01/23 22:00 22:04 Temperature 36.2 C L Heart Rate 106 H 93 Respiratory 20 18 Rate Blood Pressure 169/106 H 189/105 H O2 Saturation 96 97 Oxygen O2 Source Room air PD Medical Decision Making - ED course ED course: Modified trauma called upon arrival and when I ascertained with the patient fell and hit his head and is on Eliquis. Denies LOC. Refused c-collar. CT head, C- spine, x-ray chest and pelvis ordered. Tdap provided for abrasions to forehead and hands. X-ray bilateral knees ordered since they are ttp and he fell on them. Patient left prior to x rays against medical advice. did not have time to get him to sign AMA forms. He was holding drug paraphernalia, possibly a meth pipe, per workforce staffing advisor as he left. CT head/neck negative. Departure - Departure Disposition: 07 Against Medical Advice Condition: Stable Forms: PCP List Discharge Date/Time: 11/01/23 23:28
[2023-11-01] MEDS: BACITRACIN ZINC OINT 1 PACKET TOP STA ×2 (22:27→23:09)
[2023-11-01] MEDS: ACETAMINOPHEN 325 MG TABLET PO STA (22:27)
[2023-11-01 23:06] VITALS: BP 189/105; O2SAT 97
--- NOTE | 2023-11-01 23:13 | CT Report ---
PROCEDURE: Head WO INDICATIONS: Head trauma, mod-severe TECHNIQUE: Noncontrast 4.5 mm thick angled axial sections acquired from the foramen magnum to the vertex. For r adiation dose reduction, the following was used: automated exposure control, adjustment of mA and/or kV according to patient size. COMPARISON: None. FINDINGS: Image quality: Excellent. CSF spaces: Basal cisterns are patent. No extra-axial fluid collections. Ventricles are normal in size and shape. Brain: No midline shift. No intracranial masses or hemorrhage. Steiner-white matter interface is norm al. Skull and face: Calvarium and visualized facial bones are intact, without suspicious lesions. Sinuses: Visualized sinuses and mastoids are clear. IMPRESSION: No acute intracranial pathology. Reviewed by: Sahil Ag MD on 11/01/2023 11:11 PM PST Approved by: Sahil Ag MD on 11/01/2023 11:11 PM PST Station ID: [id number]
--- NOTE | 2023-11-01 23:21 | CT Report ---
PROCEDURE: Cervical Spine WO INDICATIONS: Neck trauma, midline tenderness TECHNIQUE: Noncontrast 3 mm thick sections acquired from the skull base to the T4 level. Sagittal and coronal r eformats were then constructed. For radiation dose reduction, the following was used: automated exp osure control, adjustment of mA and/or kV according to patient size. COMPARISON: None. FINDINGS: Image quality: Study limited by patient motion artifact. Bones: No acute fractures or dislocations. No acute compression fractures of the vertebral bodies. C raniocervical junction is intact. C1-C2 relationship is preserved. Visualized superior ribs are intac t. Multilevel cervical spondylosis. Soft tissues: Prevertebral soft tissues are normal in thickness. No paravertebral hematomas. No ap ical pneumothoraces. IMPRESSION: No acute, displaced fracture or traumatic subluxation. Reviewed by: Sahil Ag MD on 11/01/2023 11:20 PM PST Approved by: Sahil Ag MD on 11/01/2023 11:20 PM PST Station ID: [id number]
== END 2023-11-01 23:28 | disposition left against medical advice (07) ==
LOC: EDUNIT# → ED 21:49
DX: S01.81XA Laceration without foreign body of other part of head, initial encounter (principal); M79.642 Pain in left hand; M79.641 Pain in right hand; M25.562 Pain in left knee; M25.561 Pain in right knee; W19.XXXA Unspecified fall, initial encounter; I10 Essential (primary) hypertension; F17.200 Nicotine dependence, unspecified, uncomplicated; Z79.01 Long term (current) use of anticoagulants; Z79.899 Other long term (current) drug therapy; Z53.29 Procedure and treatment not carried out because of patient's decision for other reasons
CPT/HCPCS: 70450; 72125; 99283; 99284; A9270; 83605

== ENCOUNTER 2023-11-02 07:39 | Outpatient (CLI) | payer MEDICAID | END 2023-11-02 23:59 | disposition critical access hospital (66) | LOC: EMS 07:39 | DX: H53.9 Unspecified visual disturbance (principal); R52 Pain, unspecified; Z59.00 Homelessness unspecified | CPT/HCPCS: A0425; A0429; A0999 ==

== ENCOUNTER 2023-11-02 07:43 | Emergency (ER) | payer MEDICAID ==
[2023-11-02 08:03] VITALS: BP 140/107; O2SAT 100
--- NOTE | 2023-11-02 08:52 | ED Physician Documentation ---
PD HPI HEAD INJURY - Stated complaint Stated Complaint: BLURRY VISION - Chief complaint Chief Complaint: General - History obtained from History obtained from: Patient PD PAST MEDICAL HISTORY - Past Medical History Past Medical History: Yes Cardiovascular: Hypertension, Pulmonary embolism Respiratory: None, Other Neuro: None Endocrine/Autoimmune: None GI: None : None HEENT: Chronic sinusitis Psych: Depression, Anxiety, Bipolar disorder, Panic attacks, ADD/ADHD, Post traumatic stress disorder, Claustrophobia Musculoskeletal: Gout Derm: None - Past Surgical History Past Surgical History: Yes Ortho: Rotator cuff repair, Other HEENT: Tonsil/Adenoidectomy - Present Medications Home Medications: Ambulatory Orders Medication Instructions Recorded Confirmed lamoTRIgine [LaMICtal] 200 mg PO BID 05/08/14 08/20/23 OLANZapine [Zyprexa] 30 mg PO DAILY 04/28/15 08/20/23 Divalproex Sodium [Depakote] 500 mg PO BID 01/21/16 08/20/23 Guanfacine HCl [Intuniv] 4 mg PO DAILY 07/24/23 08/20/23 Lisinopril [Zestril] 10 mg PO DAILY 07/24/23 08/20/23 allopurinoL [Zyloprim] 100 mg PO DAILY 07/24/23 08/20/23 Buspirone HCl 15 mg PO BID #60 tablet 07/25/23 08/20/23 Guanfacine HCl [Intuniv] 4 mg PO DAILY #30 tab 07/25/23 08/20/23 OLANZapine [Olanzapine] 15 mg PO HS #60 tablet 07/25/23 - Allergies Allergies/Adverse Reactions: Allergies Allergy/AdvReac Type Severity Reaction Status Date / Time risperidone [From Risperdal] Allergy Severe Edema Verified 11/02/23 07:56 rofecoxib [From Vioxx] Allergy Severe rapid Verified 11/02/23 07:56 heart rate celecoxib [From Celebrex] Allergy Intermediate elevated HR Verified 11/02/23 07:56 NSAIDS (Non-Steroidal Allergy Intermediate Respiratory Verified 11/02/23 07:56 Anti-Inflamma pentosan polysulfate sodium Allergy Mild Unknown Verified 11/02/23 07:56 [From Elmiron] dicyclomine Allergy Unknown Verified 11/02/23 07:56 quetiapine [From Seroquel] Allergy Unknown Verified 11/02/23 07:56 - Social History Does the pt smoke?: Yes Smoking Status: Current every day smoker Does the pt drink ETOH?: No Does the pt have substance abuse?: Yes - Immunizations Immunizations are current?: Yes - POLST Patient has POLST: No Results - Vitals Vitals: Vital Signs - 24 hr 11/02/23 07:50 Temperature 37 C Heart Rate 88 Respiratory 18 Rate Blood Pressure 140/107 H O2 Saturation 100 Oxygen O2 Source Room air Departure - Departure
== END 2023-11-02 09:07 | disposition left against medical advice (07) ==
LOC: EDUNIT# → ED 07:43
DX: Z53.21 Procedure and treatment not carried out due to patient leaving prior to being seen by health care provider (principal)

== ENCOUNTER 2023-12-04 11:54 | Outpatient (CLI) | payer MEDICAID ==
[2023-12-04 12:33] LABS: BASOPHILS # (AUTO) 0.1 10^3/uL (0.0-0.1); BASOPHILS % (AUTO) 0.5 %; EOSINOPHILS # (AUTO) 0.2 10^3/uL (0.0-0.7); EOSINOPHILS % (AUTO) 1.5 %; HCT - HEMATOCRIT 43.1 % (42.0-52.0); HGB - HEMOGLOBIN 14.8 g/dL (14.0-18.0); LYMPHOCYTES # (AUTO) 2.8 10^3/uL (1.5-3.5); LYMPHOCYTES % (AUTO) 26.5 %; MEAN CORPUSCULAR HEMOGLOBIN 30.9 pg (27.0-31.0); MEAN CORPUSCULAR HGB CONC 34.3 g/dL (32.0-36.0); MEAN PLATELET VOLUME 9.9 fL (7.4-11.4); MONOCYTES # (AUTO) 0.9 10^3/uL (0.0-1.0); MONOCYTES % (AUTO) 8.7 %; NEUTROPHILS # (AUTO) 6.7 10^3/uL (1.5-6.6); NEUTROPHILS % (AUTO) 62.6 %; PLT - PLATELET COUNT 292 10^3/uL (130-450); RED BLOOD COUNT 4.79 10^6/uL (4.70-6.10); RED CELL DISTRIBUTION WIDTH 11.7 % (12.0-15.0); WHITE BLOOD COUNT 10.6 x10^3/uL (4.8-10.8)
[2023-12-04 12:50] LABS: ALBUMIN 4.4 g/dL (3.2-5.5); ALBUMIN/GLOBULIN RATIO 1.8 (1.0-2.2); BILIRUBIN,TOTAL 0.6 mg/dL (0.2-1.0); CALCIUM 10.2 mg/dL (8.5-10.3); POTASSIUM 3.9 mmol/L (3.5-4.5); TOTAL PROTEIN 6.9 g/dL (6.4-8.9)
== END 2023-12-04 11:55 | disposition home or self-care (01) ==
LOC: LAB 11:54
PROVIDERS: ATTEND Nurse Practitioner Psychiatric/Mental Health
DX: F31.81 Bipolar II disorder (principal); F90.2 Attention-deficit hyperactivity disorder, combined type; Z79.899 Other long term (current) drug therapy
CPT/HCPCS: 36415; 80053; 80164; 85025